=== PATIENT | female | born 1945 | race African-American/Black ===

== ENCOUNTER 2017-07-08 16:10 | Inpatient (IN) | payer MEDICARE, OTHER ==
[2017-07-08] MEDS: SOD CHLORIDE 0.9% 1,000 ML IV (20:57)
[2017-07-08 21:08] LABS: ADD MAN DIFF? NO
[2017-07-08 21:11] LABS: WHITE BLOOD COUNT 12.7 10^3/ul (4.8-10.8)
[2017-07-08 21:11] LABS: BASOPHILS % 0.3 % (0.0-2.0); HEMATOCRIT 42.7 % (37.0-47.0); HEMOGLOBIN 14.5 g/dl (12.0-16.0); LYMPHOCYTES # 2.4 10^3/ul (0.8-2.9); LYMPHOCYTES % 18.7 % (15.0-51.0); MEAN CORPUSCULAR HEMOGLOBIN 27.4 pg (29.0-33.0); MEAN CORPUSCULAR VOLUME 80.6 fl (82.0-101.0); MEAN PLATELET VOLUME 11.8 fl (7.4-10.4); MONOCYTE # 0.6 10^3/ul (0.3-0.9); MONOCYTES % 4.6 % (0.0-11.0); NEUTROPHIL # 9.4 10^3/ul (1.6-7.5); NEUTROPHILS % 74.1 % (39.0-77.0); PLATELET COUNT 208 10^3/UL (140-415); RED CELL DISTRIBUTION WIDTH 14.4 % (11.5-14.5)
[2017-07-08 21:34] LABS: ADD UMIC NO; UR ASCORBIC ACID NEGATIVE (NEGATIVE); UR BILIRUBIN (Dip) NEGATIVE (NEGATIVE); UR BLOOD (Dip) NEGATIVE (NEGATIVE); UR CLARITY CLEAR (CLEAR); UR COLOR YELLOW (YELLOW); UR GLUCOSE (Dip) 3+ mg/dL (NEGATIVE); UR KETONES (Dip) NEGATIVE (NEGATIVE); UR LEUKOCYTE ESTERASE (Dip) NEGATIVE Leu/ul (NEGATIVE); UR NITRITE (Dip) NEGATIVE (NEGATIVE); UR TOTAL PROTEIN (Dip) NEGATIVE (NEGATIVE); UR UROBILINOGEN (Dip) NEGATIVE (NEGATIVE)
[2017-07-08 21:41] LABS: ALANINE AMINOTRANSFERASE 28 IU/L (13-69); ALBUMIN 4.1 g/dl (3.3-4.9); ALKALINE PHOSPHATASE 109 IU/L (42-121); ANION GAP 21 (8-16); ASPARTATE AMINO TRANSFERASE 20 IU/L (15-46); BLOOD UREA NITROGEN 16 mg/dl (7-20); CARBON DIOXIDE 22 mmol/L (21-31); CHLORIDE 95 mmol/L (97-110); CREATININE 0.61 mg/dl (0.44-1.00); GLUCOSE 394 mg/dl (70-220); LIPASE 171 U/L (23-300); POTASSIUM 4.6 mmol/L (3.5-5.1); SODIUM 133 mmol/L (135-144); TOTAL PROTEIN 6.5 g/dl (6.1-8.1)
[2017-07-08 21:43] LABS: LACTIC ACID 9.6 mmol/L (0.5-2.0)
[2017-07-08 21:56] LABS: TROPONIN-I < 0.012 ng/ml (0.00-0.12)
[2017-07-08 22:11] LABS: INR 0.93; PROTIME 12.5 Sec (11.9-14.9)
[2017-07-08 22:12] LABS: PARTIAL THROMBOPLASTIN TIME 21.8 Sec (25.0-35.0)
[2017-07-08] MEDS: SODIUM CHLORIDE 0.9% 1L BAG IV* (23:04)
[2017-07-08] MEDS: CEFEPIME 1GM/50 ML (PMX) 50 ML IVPB (23:35)
[2017-07-08 23:42] LABS: LACTIC ACID 7.3 mmol/L (0.5-2.0)
[2017-07-09] MEDS ORDERED: ONDANSETRON 4 MG INJ IV
[2017-07-09] MEDS ORDERED: ACETAMINOPHEN 325 MG TAB PO
[2017-07-09 00:15] LABS: MODE ROOM AIR; MetHgb Venous 0.1 %; Sample Type Blood venous; Site VENOUS LINE; Venous COHb 2.4 %; Venous Fraction OxyHgb 87.3 %; Venous Oxygen Sat 89.5 mmHG (55.0-75.0); Venous Total Hemglobin 14.2 g/dl
[2017-07-09] MEDS: SOD CHLORIDE 0.9% 1,000 ML IV ×2 (00:26→13:46)
[2017-07-09] MEDS ORDERED: BISACODYL (EC) 5 MG TAB PO (00:30)
[2017-07-09] MEDS ORDERED: NACL 0.9% 3 ML SYG IV (00:30)
[2017-07-09] MEDS ORDERED: DOCUSATE SODIUM 100 MG CAP PO (00:30)
[2017-07-09] MEDS ORDERED: GLUCAGON 1 MG INJ IM (01:00)
[2017-07-09] MEDS ORDERED: GLUCOSE GEL 15 GRAM TUBE PO ×2 (01:00)
[2017-07-09] MEDS ORDERED: DEXTROSE 50% 50 ML SYRINGE IV ×2 (01:00)
[2017-07-09] MEDS ORDERED: GLUCOSE GEL 15 GRAM TUBE BUCCAL (01:00)
[2017-07-09] MEDS: ALBUTEROL/IPRATROPIUM (NEB) 3 ML AMP HHN ×6 (01:44→21:35)
[2017-07-09] MEDS: NICOTINE (7 MG/24 HR) PATCH TRANSDERM (01:44)
[2017-07-09 01:47] LABS: LACTIC ACID 4.9 mmol/L (0.5-2.0)
[2017-07-09] MEDS: ACCU-CHEK XX (02:00)
[2017-07-09 03:37] LABS: D-DIMER 679.08 ng/ml (<460)
[2017-07-09 03:39] LABS: CREATINE KINASE 38 IU/L (23-200)
[2017-07-09 03:51] LABS: CK INDEX 1.9; CK-MB 0.74 ng/ml (0.0-2.4)
[2017-07-09 03:56] LABS: LACTIC ACID 5.2 mmol/L (0.5-2.0)
[2017-07-09 04:16] LABS: TROPONIN-I < 0.012 ng/ml (0.00-0.12)
[2017-07-09] MEDS: SOD CHLORIDE 0.9% 100 ML (06:17)
[2017-07-09] MEDS: IOHEXOL 300MG/ML 150 ML BTL (06:17)
[2017-07-09 07:41] LABS: ADD MAN DIFF? NO
[2017-07-09 07:46] LABS: WHITE BLOOD COUNT 12.8 10^3/ul (4.8-10.8)
[2017-07-09 07:46] LABS: BASOPHILS % 0.2 % (0.0-2.0); EOSINOPHILS # 0.1 10^3/ul (0.0-0.5); EOSINOPHILS % 0.8 % (0.0-7.0); HEMATOCRIT 35.2 % (37.0-47.0); HEMOGLOBIN 11.5 g/dl (12.0-16.0); LYMPHOCYTES # 4.5 10^3/ul (0.8-2.9); LYMPHOCYTES % 34.7 % (15.0-51.0); MEAN CORPUSCULAR HEMOGLOBIN 26.9 pg (29.0-33.0); MEAN CORPUSCULAR HGB CONC 32.7 g/dl (32.0-37.0); MEAN CORPUSCULAR VOLUME 82.2 fl (82.0-101.0); MEAN PLATELET VOLUME 11.1 fl (7.4-10.4); MONOCYTE # 0.9 10^3/ul (0.3-0.9); MONOCYTES % 6.9 % (0.0-11.0); NEUTROPHILS % 54.9 % (39.0-77.0); PLATELET COUNT 151 10^3/UL (140-415); RED BLOOD COUNT 4.28 10^6/ul (4.20-5.40); RED CELL DISTRIBUTION WIDTH 14.8 % (11.5-14.5)
[2017-07-09 07:54] LABS: HEMOGLOBIN A1C 9.2 % (0-5.9)
[2017-07-09 08:07] LABS: CREATINE KINASE 43 IU/L (23-200)
[2017-07-09 08:11] LABS: ALANINE AMINOTRANSFERASE 32 IU/L (13-69); ALBUMIN 2.9 g/dl (3.3-4.9); ALBUMIN/GLOBULIN RATIO 1.38; ALKALINE PHOSPHATASE 117 IU/L (42-121); ANION GAP 12 (8-16); ASPARTATE AMINO TRANSFERASE 14 IU/L (15-46); BLOOD UREA NITROGEN 14 mg/dl (7-20); CALCIUM 8.8 mg/dl (8.4-10.2); CARBON DIOXIDE 27 mmol/L (21-31); CHLORIDE 102 mmol/L (97-110); CREATININE 0.58 mg/dl (0.44-1.00); GLUCOSE 301 mg/dl (70-220); POTASSIUM 3.7 mmol/L (3.5-5.1); SODIUM 137 mmol/L (135-144)
[2017-07-09 08:12] LABS: CHOL/HDL RATIO 3.2 RATIO; HDL CHOLESTEROL 42 mg/dl (33-92); LDL CHOLESTEROL,CALCULATED 71 mg/dl; TRIGLYCERIDES 127 mg/dl (0-149)
[2017-07-09 08:12] LABS: CHOLESTEROL 138 mg/dl (100-200)
[2017-07-09 08:13] LABS: LACTIC ACID 4.5 mmol/L (0.5-2.0)
[2017-07-09 08:18] LABS: CK INDEX 1.8; CK-MB 0.78 ng/ml (0.0-2.4)
[2017-07-09 08:20] LABS: TROPONIN-I < 0.012 ng/ml (0.00-0.12)
[2017-07-09] MEDS: AMLODIPINE 2.5 MG TAB PO (08:51)
[2017-07-09] MEDS: LEVOTHYROXINE 112 MCG TAB PO (08:51)
[2017-07-09] MEDS: ASPIRIN (EC) 81 MG TAB PO (08:51)
[2017-07-09] MEDS: ENOXAPARIN 60 MG/0.6 ML SYG SC (08:59)
[2017-07-09] MEDS: INSULIN ASPART [NOVOLOG] 3 ML PEN SC ×5 (09:00→21:55)
[2017-07-09 09:06] LABS: THYROID STIMULATING HORMONE < 0.015 MIU/L (0.465-4.680)
[2017-07-09 12:41] LABS: B-TYPE NATRIURETIC PEPTIDE 42 PG/ML (0-125)
[2017-07-09] MEDS: ACETAMINOPHEN 325 MG TAB PO (14:36)
[2017-07-09 14:47] LABS: LACTIC ACID 2.9 mmol/L (0.5-2.0)
[2017-07-09 16:16] LABS: LACTIC ACID 2.8 mmol/L (0.5-2.0)
[2017-07-09 16:42] LABS: FREE T4 (FREE THYROXINE) 1.69 ng/dl (0.78-2.44)
[2017-07-09] MEDS: BENAZEPRIL 10 MG TAB PO (17:28)
[2017-07-09] MEDS: INSULIN GLARGINE [LANtus] 3 ML PEN SC (21:53)
[2017-07-10] MEDS: HYDROCODONE/APAP (10/325) TAB PO ×3 (01:37→18:23)
[2017-07-10] MEDS: ACCU-CHEK XX (02:00)
[2017-07-10] MEDS: ALBUTEROL/IPRATROPIUM (NEB) 3 ML AMP HHN ×6 (02:08→21:00)
[2017-07-10] MEDS: SOD CHLORIDE 0.9% 1,000 ML IV ×2 (03:06→18:17)
[2017-07-10] MEDS: LEVOTHYROXINE 112 MCG TAB PO (06:00)
[2017-07-10] MEDS: INSULIN ASPART [NOVOLOG] 3 ML PEN SC ×7 (08:00→20:42)
[2017-07-10 08:58] LABS: ADD MAN DIFF? NO
[2017-07-10 09:02] LABS: ABNORMAL IP MESSAGE 1; BASOPHIL # 0.1 10^3/ul (0.0-0.1); BASOPHILS % 0.7 % (0.0-2.0); EOSINOPHILS # 0.1 10^3/ul (0.0-0.5); EOSINOPHILS % 1.2 % (0.0-7.0); HEMATOCRIT 35.8 % (37.0-47.0); HEMOGLOBIN 12.1 g/dl (12.0-16.0); LYMPHOCYTES # 5.3 10^3/ul (0.8-2.9); LYMPHOCYTES % 52.8 % (15.0-51.0); MEAN CORPUSCULAR HEMOGLOBIN 27.6 pg (29.0-33.0); MEAN CORPUSCULAR HGB CONC 33.8 g/dl (32.0-37.0); MEAN CORPUSCULAR VOLUME 81.7 fl (82.0-101.0); MEAN PLATELET VOLUME 11.4 fl (7.4-10.4); MONOCYTE # 0.6 10^3/ul (0.3-0.9); MONOCYTES % 6.1 % (0.0-11.0); NEUTROPHIL # 3.6 10^3/ul (1.6-7.5); NEUTROPHILS % 35.7 % (39.0-77.0); PLATELET COUNT 154 10^3/UL (140-415); RED BLOOD COUNT 4.38 10^6/ul (4.20-5.40); RED CELL DISTRIBUTION WIDTH 14.6 % (11.5-14.5)
[2017-07-10 09:02] LABS: WHITE BLOOD COUNT 10.1 10^3/ul (4.8-10.8)
[2017-07-10 09:05] LABS: POSITIVE DIFF @See below
[2017-07-10] MEDS: BENAZEPRIL 10 MG TAB PO (09:05)
[2017-07-10] MEDS: ASPIRIN (EC) 81 MG TAB PO (09:05)
[2017-07-10] MEDS: NICOTINE (7 MG/24 HR) PATCH TRANSDERM (09:05)
[2017-07-10] MEDS: AMLODIPINE 2.5 MG TAB PO (09:05)
[2017-07-10] MEDS: ENOXAPARIN 40 MG/0.4 ML SYG SC (09:10)
[2017-07-10 09:19] LABS: PHOSPHORUS 3.4 mg/dl (2.5-4.9)
[2017-07-10 09:19] LABS: ANION GAP 11 (8-16); BLOOD UREA NITROGEN 14 mg/dl (7-20); CALCIUM 9.5 mg/dl (8.4-10.2); CARBON DIOXIDE 27 mmol/L (21-31); CHLORIDE 109 mmol/L (97-110); GLUCOSE 146 mg/dl (70-220); SODIUM 143 mmol/L (135-144)
[2017-07-10 09:30] LABS: LACTIC ACID 2.5 mmol/L (0.5-2.0)
[2017-07-10 13:48] LABS: FREE T4 (FREE THYROXINE) 1.42 ng/dl (0.78-2.44)
[2017-07-10 15:03] LABS: THYROID STIMULATING HORMONE < 0.015 MIU/L (0.465-4.680)
[2017-07-10 15:40] LABS: LACTIC ACID 2.9 mmol/L (0.5-2.0)
[2017-07-10] MEDS: INSULIN GLARGINE [LANtus] 3 ML PEN SC (20:42)
[2017-07-11] MEDS: ALBUTEROL/IPRATROPIUM (NEB) 3 ML AMP HHN ×4 (01:00→14:39)
[2017-07-11] MEDS: ACCU-CHEK XX (02:00)
[2017-07-11] MEDS: ZOLPIDEM 5 MG TAB PO (02:20)
[2017-07-11] MEDS: LEVOTHYROXINE 100 MCG TAB PO (05:32)
[2017-07-11 05:37] LABS: ADD MAN DIFF? NO
[2017-07-11 05:41] LABS: WHITE BLOOD COUNT 9.1 10^3/ul (4.8-10.8)
[2017-07-11 05:41] LABS: BASOPHILS % 0.4 % (0.0-2.0); EOSINOPHILS # 0.2 10^3/ul (0.0-0.5); EOSINOPHILS % 1.8 % (0.0-7.0); HEMATOCRIT 34.2 % (37.0-47.0); HEMOGLOBIN 11.2 g/dl (12.0-16.0); LYMPHOCYTES # 4.2 10^3/ul (0.8-2.9); LYMPHOCYTES % 45.7 % (15.0-51.0); MEAN CORPUSCULAR HEMOGLOBIN 26.8 pg (29.0-33.0); MEAN CORPUSCULAR HGB CONC 32.7 g/dl (32.0-37.0); MEAN CORPUSCULAR VOLUME 81.8 fl (82.0-101.0); MEAN PLATELET VOLUME 11.3 fl (7.4-10.4); MONOCYTE # 0.6 10^3/ul (0.3-0.9); NEUTROPHIL # 3.7 10^3/ul (1.6-7.5); NEUTROPHILS % 40.6 % (39.0-77.0); NUCLEATED RED BLOOD CELLS% 0.3 /100WBC (0.0-0.0); PLATELET COUNT 141 10^3/UL (140-415); RED BLOOD COUNT 4.18 10^6/ul (4.20-5.40); RED CELL DISTRIBUTION WIDTH 14.8 % (11.5-14.5)
[2017-07-11 05:59] LABS: PHOSPHORUS 3.4 mg/dl (2.5-4.9)
[2017-07-11 05:59] LABS: MAGNESIUM 1.3 mg/dl (1.7-2.5)
[2017-07-11] MEDS: HYDROCODONE/APAP (10/325) TAB PO (06:12)
[2017-07-11] MEDS: SOD CHLORIDE 0.9% 1,000 ML IV (06:13)
[2017-07-11 06:18] LABS: ANION GAP 8 (8-16); BLOOD UREA NITROGEN 19 mg/dl (7-20); CALCIUM 9.3 mg/dl (8.4-10.2); CARBON DIOXIDE 26 mmol/L (21-31); CHLORIDE 111 mmol/L (97-110); CREATININE 0.56 mg/dl (0.44-1.00); GLUCOSE 144 mg/dl (70-220); POTASSIUM 4.3 mmol/L (3.5-5.1); SODIUM 141 mmol/L (135-144)
[2017-07-11 06:19] LABS: LACTIC ACID 1.4 mmol/L (0.5-2.0)
[2017-07-11] MEDS: INSULIN ASPART [NOVOLOG] 3 ML PEN SC ×3 (08:15→12:12)
[2017-07-11] MEDS: BENAZEPRIL 10 MG TAB PO (09:34)
[2017-07-11] MEDS: AMLODIPINE 2.5 MG TAB PO (09:34)
[2017-07-11] MEDS: ASPIRIN (EC) 81 MG TAB PO (09:34)
[2017-07-11] MEDS: NICOTINE (7 MG/24 HR) PATCH TRANSDERM ×2 (09:35→12:29)
[2017-07-11] MEDS: ENOXAPARIN 40 MG/0.4 ML SYG SC (09:36)
[2017-07-11] MEDS: LINAGLIPTIN 5 MG TABLET PO (11:32)
[2017-07-11] MEDS: SALMETEROL/FLUTICASONE 250/50 INHA INH (12:28)
[2017-07-11] MEDS: REPAGLINIDE 2 MG TAB PO (12:29)
[2017-07-11] MEDS: MAGNESIUM SULFATE 3 GM in DEXTROSE 5% 100 ML IVPB (14:24)
[2017-07-11] MEDS ORDERED: metFORMIN 850 MG TAB PO (17:50)
[2017-07-11] MEDS ORDERED: metFORMIN 500 MG TAB PO (17:50)
[2017-07-11] MEDS ORDERED: MONTELUKAST 10 MG TAB PO (21:00)
[2017-07-12] MEDS ORDERED: BENAZEPRIL 40 MG TAB PO (09:00)
== END 2017-07-11 17:40 | disposition home or self-care (01) | DRG 638 ==
LOC: MS4 23:48 → MS2 07-09 03:11 → E/R 16:10 → MS2 07-10 18:10
PROVIDERS: Family Medicine
DX: E11.65 Type 2 diabetes mellitus with hyperglycemia (principal); E87.2 Acidosis; J44.9 Chronic obstructive pulmonary disease, unspecified; I11.9 Hypertensive heart disease without heart failure; E03.9 Hypothyroidism, unspecified; F17.210 Nicotine dependence, cigarettes, uncomplicated; R60.0 Localized edema; E66.9 Obesity, unspecified; Z68.35 Body mass index [BMI] 35.0-35.9, adult
CPT/HCPCS: 36415; 71045; 71275; 80048; 80053; 80061; 81003; 82550; 82553; 82803; 82962; 83036; 83605; 83690; 83735; 83880; 84100; 84439; 84443; 84484; 85025; 85378; 85610; 85730; 87040; 87086; 87400; 93005; 93306; 93970; 94640; 94664; 96374; 99291-25

== ENCOUNTER 2018-04-11 21:19 | Observation (INO) | payer MEDICARE, OTHER ==
[2018-04-12 00:09] LABS: ADD MAN DIFF? NO
[2018-04-12 00:10] LABS: BASOPHILS % 0.3 % (0.0-2.0); EOSINOPHILS # 0.4 10^3/ul (0.0-0.5); EOSINOPHILS % 3.8 % (0.0-7.0); HEMATOCRIT 38.9 % (37.0-47.0); HEMOGLOBIN 12.3 g/dl (12.0-16.0); LYMPHOCYTES % 30.7 % (15.0-51.0); MEAN CORPUSCULAR HEMOGLOBIN 25.5 pg (29.0-33.0); MEAN CORPUSCULAR HGB CONC 31.6 g/dl (32.0-37.0); MEAN CORPUSCULAR VOLUME 80.7 fl (82.0-101.0); MEAN PLATELET VOLUME 10.8 fl (7.4-10.4); MONOCYTE # 0.9 10^3/ul (0.3-0.9); NEUTROPHIL # 5.4 10^3/ul (1.6-7.5); NEUTROPHILS % 54.7 % (39.0-77.0); PLATELET COUNT 272 10^3/UL (140-415); RED BLOOD COUNT 4.82 10^6/ul (4.20-5.40); RED CELL DISTRIBUTION WIDTH 14.2 % (11.5-14.5)
[2018-04-12 00:10] LABS: WHITE BLOOD COUNT 9.9 10^3/ul (4.8-10.8)
[2018-04-12] MEDS: morphine 4 MG/ML VIAL IV (00:10)
[2018-04-12] MEDS: ONDANSETRON 4 MG INJ IV (00:10)
[2018-04-12] MEDS: METHYLPREDNISOLONE 125 MG INJ IV (00:11)
[2018-04-12] MEDS: IPRATROPIUM (NEB) 0.5 MG/2.5 ML AMP INH (00:25)
[2018-04-12] MEDS: ALBUTEROL 0.5% (NEB) 2.5 MG/0.5 ML AMP INH (00:25)
[2018-04-12 00:34] LABS: ANION GAP 6 (5-13); BLOOD UREA NITROGEN 13 mg/dl (7-20); CALCIUM 9.4 mg/dl (8.4-10.2); CARBON DIOXIDE 28 mmol/L (21-31); CHLORIDE 107 mmol/L (97-110); CREATININE 0.56 mg/dl (0.44-1.00); Estimated GFR > 60 mL/min (>60); GLUCOSE 152 mg/dl (70-220); POTASSIUM 3.9 mmol/L (3.5-5.1); SODIUM 141 mmol/L (135-144)
[2018-04-12] MEDS: HYDROmorphONE 1 MG/ML SYG IV (01:11)
[2018-04-12] MEDS: ALBUTEROL 0.083% (NEB) 2.5 MG/3 ML AMP HHN (02:38)
[2018-04-12] MEDS ORDERED: BISACODYL (EC) 5 MG TAB PO (03:00)
[2018-04-12] MEDS ORDERED: ONDANSETRON 4 MG INJ IV (03:00)
[2018-04-12] MEDS ORDERED: ACETAMINOPHEN 325 MG TAB PO (03:00)
[2018-04-12] MEDS ORDERED: DOCUSATE SODIUM 100 MG CAP PO (03:00)
[2018-04-12] MEDS ORDERED: NACL 0.9% 3 ML SYG IV (03:00)
[2018-04-12] MEDS: HYDROmorphONE 0.5 MG/0.5 ML SYG IV (03:40)
[2018-04-12] MEDS: morphine 2 MG INJ IV (04:37)
[2018-04-12] MEDS ORDERED: GLUCOSE GEL 15 GRAM TUBE PO ×2 (05:00)
[2018-04-12] MEDS ORDERED: GLUCAGON 1 MG INJ IM (05:00)
[2018-04-12] MEDS ORDERED: DEXTROSE 50% 50 ML SYRINGE IV ×2 (05:00)
[2018-04-12] MEDS ORDERED: GLUCOSE GEL 15 GRAM TUBE BUCCAL (05:00)
[2018-04-12] MEDS: ALBUTEROL/IPRATROPIUM (NEB) 3 ML AMP HHN ×5 (05:14→21:05)
[2018-04-12] MEDS ORDERED: RANITIDINE 150 MG TAB PO (07:30)
[2018-04-12] MEDS: INSULIN ASPART [NOVOLOG] 3 ML PEN SC ×6 (07:37→20:30)
[2018-04-12] MEDS: LEVOTHYROXINE 100 MCG TAB PO (07:38)
[2018-04-12] MEDS: BUDESONIDE (NEB) 0.5MG/2ML AMP INH ×2 (08:20→21:05)
[2018-04-12] MEDS ORDERED: NON-FORMULARY/PATIENT OWN MED (Salmeterol Xinaf/Fluticasone* (Advair*) 1 INH) INH (09:00)
[2018-04-12] MEDS: HYDROCODONE/APAP (10/325) TAB NGT ×4 (09:04→22:05)
[2018-04-12 09:06] LABS: ADD MAN DIFF? NO
[2018-04-12 09:14] LABS: WHITE BLOOD COUNT 8.8 10^3/ul (4.8-10.8)
[2018-04-12 09:14] LABS: BASOPHILS % 0.2 % (0.0-2.0); EOSINOPHILS # 0.2 10^3/ul (0.0-0.5); EOSINOPHILS % 2.5 % (0.0-7.0); HEMATOCRIT 34.4 % (37.0-47.0); HEMOGLOBIN 10.8 g/dl (12.0-16.0); LYMPHOCYTES # 3.2 10^3/ul (0.8-2.9); LYMPHOCYTES % 36.2 % (15.0-51.0); MEAN CORPUSCULAR HEMOGLOBIN 25.4 pg (29.0-33.0); MEAN CORPUSCULAR HGB CONC 31.4 g/dl (32.0-37.0); MEAN CORPUSCULAR VOLUME 80.8 fl (82.0-101.0); MEAN PLATELET VOLUME 11.4 fl (7.4-10.4); MONOCYTE # 0.8 10^3/ul (0.3-0.9); MONOCYTES % 9.2 % (0.0-11.0); NEUTROPHIL # 4.5 10^3/ul (1.6-7.5); NEUTROPHILS % 50.9 % (39.0-77.0); PLATELET COUNT 225 10^3/UL (140-415); RED BLOOD COUNT 4.26 10^6/ul (4.20-5.40); RED CELL DISTRIBUTION WIDTH 14.5 % (11.5-14.5)
[2018-04-12 09:29] LABS: HEMOGLOBIN A1C 7.4 % (0-5.9)
[2018-04-12] MEDS: predniSONE 20 MG TAB PO (09:47)
[2018-04-12] MEDS: BENAZEPRIL 40 MG TAB PO (09:47)
[2018-04-12] MEDS: ASPIRIN (EC) 81 MG TAB PO (09:47)
[2018-04-12] MEDS: NICOTINE (14 MG/24 HR) PATCH TRANSDERM (09:47)
[2018-04-12 09:49] LABS: ALANINE AMINOTRANSFERASE 20 IU/L (13-69); ALBUMIN 3.1 g/dl (3.3-4.9); ALKALINE PHOSPHATASE 89 IU/L (42-121); ANION GAP 10 (5-13); ASPARTATE AMINO TRANSFERASE 14 IU/L (15-46); BLOOD UREA NITROGEN 14 mg/dl (7-20); CALCIUM 9.2 mg/dl (8.4-10.2); CARBON DIOXIDE 26 mmol/L (21-31); CHLORIDE 105 mmol/L (97-110); CREATININE 0.55 mg/dl (0.44-1.00); Estimated GFR > 60 mL/min (>60); GLUCOSE 291 mg/dl (70-220); MAGNESIUM 1.2 mg/dl (1.7-2.5); POTASSIUM 3.7 mmol/L (3.5-5.1); SODIUM 141 mmol/L (135-144); TOTAL PROTEIN 5.3 g/dl (6.1-8.1)
[2018-04-12] MEDS: LEVOFLOXACIN 750 MG TABLET PO (10:03)
[2018-04-12] MEDS: ENOXAPARIN 40 MG/0.4 ML SYG SC (10:07)
[2018-04-12 10:13] LABS: THYROID STIMULATING HORMONE < 0.015 MIU/L (0.465-4.680)
[2018-04-12] MEDS: ARFORMOTEROL TARTRATE 15MCG/2 ML AMP INH ×2 (10:37→21:14)
[2018-04-12] MEDS: MAGNESIUM SULFATE 2 GM/50 ML 50 ML IVPB (11:43)
[2018-04-12] MEDS: MONTELUKAST 10 MG TAB PO (20:20)
[2018-04-12] MEDS: INSULIN GLARGINE [LANTus] (100 UNITS/ML) SYG SC (20:30)
[2018-04-13] MEDS: HYDROCODONE/APAP (10/325) TAB NGT ×3 (01:59→20:15)
[2018-04-13] MEDS ORDERED: ACCU-CHEK XX (02:00)
[2018-04-13] MEDS: ALBUTEROL/IPRATROPIUM (NEB) 3 ML AMP HHN ×6 (02:41→20:50)
[2018-04-13] MEDS: LEVOFLOXACIN 750 MG TABLET PO (07:19)
[2018-04-13] MEDS: LEVOTHYROXINE 100 MCG TAB PO (07:19)
[2018-04-13] MEDS: INSULIN ASPART [NOVOLOG] 3 ML PEN SC ×7 (08:19→20:08)
[2018-04-13] MEDS: NICOTINE (14 MG/24 HR) PATCH TRANSDERM (08:27)
[2018-04-13] MEDS: BENAZEPRIL 20 MG TAB PO (08:29)
[2018-04-13] MEDS: predniSONE 20 MG TAB PO (08:29)
[2018-04-13] MEDS: BENAZEPRIL 5 MG TAB PO (08:30)
[2018-04-13] MEDS: ASPIRIN (EC) 81 MG TAB PO (08:30)
[2018-04-13] MEDS: AMLODIPINE 5 MG TAB PO (08:30)
[2018-04-13] MEDS: ENOXAPARIN 40 MG/0.4 ML SYG SC (08:35)
[2018-04-13] MEDS: BUDESONIDE (NEB) 0.5MG/2ML AMP INH ×2 (08:38→20:43)
[2018-04-13] MEDS: ARFORMOTEROL TARTRATE 15MCG/2 ML AMP INH ×2 (08:56→20:35)
[2018-04-13] MEDS: MONTELUKAST 10 MG TAB PO (20:03)
[2018-04-13] MEDS: INSULIN GLARGINE [LANTus] (100 UNITS/ML) SYG SC (20:08)
[2018-04-14] MEDS: ALBUTEROL/IPRATROPIUM (NEB) 3 ML AMP HHN ×3 (02:10→08:16)
[2018-04-14] MEDS: HYDROCODONE/APAP (10/325) TAB NGT ×2 (03:05→09:22)
[2018-04-14] MEDS: LEVOFLOXACIN 750 MG TABLET PO (05:47)
[2018-04-14] MEDS: LEVOTHYROXINE 100 MCG TAB PO (05:47)
[2018-04-14] MEDS: INSULIN ASPART [NOVOLOG] 3 ML PEN SC ×2 (07:49→07:57)
[2018-04-14] MEDS: ARFORMOTEROL TARTRATE 15MCG/2 ML AMP INH (08:00)
[2018-04-14] MEDS: NICOTINE (14 MG/24 HR) PATCH TRANSDERM (08:06)
[2018-04-14] MEDS: ASPIRIN (EC) 81 MG TAB PO (08:06)
[2018-04-14] MEDS: BENAZEPRIL 5 MG TAB PO (08:07)
[2018-04-14] MEDS: BENAZEPRIL 20 MG TAB PO (08:07)
[2018-04-14] MEDS: AMLODIPINE 5 MG TAB PO (08:08)
[2018-04-14] MEDS: predniSONE 20 MG TAB PO (08:08)
[2018-04-14] MEDS: ENOXAPARIN 40 MG/0.4 ML SYG SC (08:14)
[2018-04-14] MEDS: BUDESONIDE (NEB) 0.5MG/2ML AMP INH (08:16)
== END 2018-04-14 12:10 | disposition home or self-care (01) ==
LOC: E/R 21:19 → TEL 04-12 02:36
DX: J44.1 Chronic obstructive pulmonary disease with (acute) exacerbation (principal); I10 Essential (primary) hypertension; E03.9 Hypothyroidism, unspecified; R60.0 Localized edema
CPT/HCPCS: 71045; 80048; 80053; 82962; 83036; 83735; 84443; 85025; 93306; 93970; 94640; 94644; 94645; 94664; 96374; 96375; 99285-25; G0378

== ENCOUNTER 2018-06-06 16:24 | Inpatient (IN) | payer MEDICARE, OTHER ==
[2018-06-06] MEDS: ASPIRIN 325 MG TAB PO (20:58)
[2018-06-06] MEDS: NITROGLYCERIN 2% 1 GM OINT PKT TD (20:58)
[2018-06-06 21:44] LABS: ADD MAN DIFF? NO
[2018-06-06 21:46] LABS: BASOPHILS % 0.5 % (0.0-2.0); EOSINOPHILS # 0.3 10^3/ul (0.0-0.5); EOSINOPHILS % 4.9 % (0.0-7.0); HEMATOCRIT 36.9 % (37.0-47.0); HEMOGLOBIN 11.6 g/dl (12.0-16.0); LYMPHOCYTES # 2.7 10^3/ul (0.8-2.9); LYMPHOCYTES % 41.9 % (15.0-51.0); MEAN CORPUSCULAR HEMOGLOBIN 24.2 pg (29.0-33.0); MEAN CORPUSCULAR HGB CONC 31.4 g/dl (32.0-37.0); MEAN CORPUSCULAR VOLUME 76.9 fl (82.0-101.0); MEAN PLATELET VOLUME 11.2 fl (7.4-10.4); MONOCYTE # 0.5 10^3/ul (0.3-0.9); MONOCYTES % 7.7 % (0.0-11.0); NEUTROPHIL # 2.9 10^3/ul (1.6-7.5); NEUTROPHILS % 44.7 % (39.0-77.0); PLATELET COUNT 260 10^3/UL (140-415); RED CELL DISTRIBUTION WIDTH 15.5 % (11.5-14.5)
[2018-06-06 21:46] LABS: WHITE BLOOD COUNT 6.5 10^3/ul (4.8-10.8)
[2018-06-06] MEDS: ONDANSETRON 4 MG INJ IV (21:49)
[2018-06-06] MEDS: HYDROmorphONE 1 MG/ML SYG IV (21:50)
[2018-06-06 22:04] LABS: ALANINE AMINOTRANSFERASE 15 IU/L (13-69); ALBUMIN 3.3 g/dl (3.3-4.9); ALBUMIN/GLOBULIN RATIO 1.06; ALKALINE PHOSPHATASE 96 IU/L (42-121); ASPARTATE AMINO TRANSFERASE 29 IU/L (15-46); BLOOD UREA NITROGEN 12 mg/dl (7-20); CALCIUM 9.5 mg/dl (8.4-10.2); CARBON DIOXIDE 30 mmol/L (21-31); CHLORIDE 103 mmol/L (97-110); CREATININE 0.55 mg/dl (0.44-1.00); Estimated GFR > 60 mL/min (>60); GLUCOSE 299 mg/dl (70-220); POTASSIUM 4.9 mmol/L (3.5-5.1); TOTAL PROTEIN 6.4 g/dl (6.1-8.1)
[2018-06-06 22:06] LABS: INR 0.89; PROTIME 12.2 Sec (11.9-14.9)
[2018-06-06 22:15] LABS: TROPONIN-I < 0.012 ng/ml (0.000-0.120)
[2018-06-06] MEDS ORDERED: ONDANSETRON 4 MG INJ IV (22:30)
[2018-06-06] MEDS ORDERED: ACETAMINOPHEN 325 MG TAB PO ×2 (22:30→23:00)
[2018-06-06 22:32] LABS: ANION GAP 7 (5-13); SODIUM 140 mmol/L (135-144)
[2018-06-06] MEDS ORDERED: DOCUSATE SODIUM 100 MG CAP PO (23:00)
[2018-06-06] MEDS ORDERED: NITROGLYCERIN (SL) 0.4 MG TAB SL (23:00)
[2018-06-06] MEDS ORDERED: BISACODYL (EC) 5 MG TAB PO (23:00)
[2018-06-06] MEDS ORDERED: NACL 0.9% 3 ML SYG IV (23:00)
[2018-06-06] MEDS: HEPARIN 5,000 UNIT/1 ML VIAL SC (23:00)
[2018-06-07] MEDS: KETOROLAC 15 MG INJ IV ×4 (00:14→22:36)
[2018-06-07] MEDS: RANITIDINE 150 MG TAB PO ×2 (00:49→22:36)
[2018-06-07] MEDS ORDERED: GLUCOSE GEL 15 GRAM TUBE BUCCAL (02:30)
[2018-06-07] MEDS ORDERED: GLUCAGON 1 MG INJ IM (02:30)
[2018-06-07] MEDS ORDERED: GLUCOSE GEL 15 GRAM TUBE PO ×2 (02:30)
[2018-06-07] MEDS ORDERED: DEXTROSE 50% 50 ML SYRINGE IV ×2 (02:30)
[2018-06-07] MEDS: ACCU-CHEK XX (02:31)
[2018-06-07] MEDS: morphine SULFATE/PF (2 MG/2 ML) SYG IV ×2 (02:33→10:16)
[2018-06-07 03:50] LABS: ADD MAN DIFF? NO
[2018-06-07 03:58] LABS: BASOPHILS % 0.5 % (0.0-2.0); EOSINOPHILS # 0.3 10^3/ul (0.0-0.5); EOSINOPHILS % 4.7 % (0.0-7.0); HEMATOCRIT 35.1 % (37.0-47.0); HEMOGLOBIN 11.1 g/dl (12.0-16.0); LYMPHOCYTES # 3.1 10^3/ul (0.8-2.9); LYMPHOCYTES % 52.5 % (15.0-51.0); MEAN CORPUSCULAR HEMOGLOBIN 24.4 pg (29.0-33.0); MEAN CORPUSCULAR HGB CONC 31.6 g/dl (32.0-37.0); MEAN CORPUSCULAR VOLUME 77.1 fl (82.0-101.0); MEAN PLATELET VOLUME 10.9 fl (7.4-10.4); MONOCYTE # 0.6 10^3/ul (0.3-0.9); MONOCYTES % 10.2 % (0.0-11.0); NEUTROPHIL # 1.9 10^3/ul (1.6-7.5); NEUTROPHILS % 31.9 % (39.0-77.0); PLATELET COUNT 232 10^3/UL (140-415); RED BLOOD COUNT 4.55 10^6/ul (4.20-5.40); RED CELL DISTRIBUTION WIDTH 15.3 % (11.5-14.5)
[2018-06-07 04:09] LABS: IRON 25 ug/dl (35-150)
[2018-06-07 04:12] LABS: CREATINE KINASE 51 IU/L (23-200)
[2018-06-07 04:18] LABS: % IRON SATURATION 8 % SAT (22-52); TOTAL IRON BINDING CAPACITY 320 ug/dl (241-421)
[2018-06-07 04:23] LABS: CK INDEX 0.7; CK-MB 0.34 ng/ml (0.0-2.4); TROPONIN-I < 0.012 ng/ml (0.000-0.120)
[2018-06-07 04:29] LABS: ALANINE AMINOTRANSFERASE 18 IU/L (13-69); ALBUMIN 3.1 g/dl (3.3-4.9); ALBUMIN/GLOBULIN RATIO 1.14; ALKALINE PHOSPHATASE 110 IU/L (42-121); ANION GAP 8 (5-13); ASPARTATE AMINO TRANSFERASE 21 IU/L (15-46); BLOOD UREA NITROGEN 14 mg/dl (7-20); CALCIUM 9.6 mg/dl (8.4-10.2); CARBON DIOXIDE 32 mmol/L (21-31); CHLORIDE 103 mmol/L (97-110); CHOL/HDL RATIO 3.8 RATIO; CHOLESTEROL 141 mg/dl (100-200); Estimated GFR > 60 mL/min (>60); GLUCOSE 267 mg/dl (70-220); HDL CHOLESTEROL 37 mg/dl (33-92); LDL CHOLESTEROL,CALCULATED 83 mg/dl; MAGNESIUM 1.5 mg/dl (1.7-2.5); POTASSIUM 4.6 mmol/L (3.5-5.1); SODIUM 143 mmol/L (135-144); TOTAL PROTEIN 5.8 g/dl (6.1-8.1); TRIGLYCERIDES 103 mg/dl (0-149)
[2018-06-07 04:34] LABS: HEMOGLOBIN A1C 8.2 % (0-5.9)
[2018-06-07 05:04] LABS: FERRITIN 18.4 ng/ml (11.1-264.0)
[2018-06-07 05:08] LABS: THYROID STIMULATING HORMONE < 0.015 MIU/L (0.465-4.680)
[2018-06-07] MEDS: LEVOTHYROXINE 88 MCG TAB PO (06:19)
[2018-06-07] MEDS: HEPARIN 5,000 UNIT/1 ML VIAL SC ×3 (06:29→22:45)
[2018-06-07] MEDS: FLUTICASONE/VILANTEROL 100-25 INH (08:19)
[2018-06-07] MEDS: LIDOCAINE 5% PATCH TD (08:19)
[2018-06-07] MEDS: BENAZEPRIL 20 MG TAB PO (08:19)
[2018-06-07] MEDS: AMLODIPINE 5 MG TAB PO (08:20)
[2018-06-07] MEDS: ASPIRIN (EC) 81 MG TAB PO (08:20)
[2018-06-07] MEDS: INSULIN ASPART [NOVOLOG] 3 ML PEN SC ×5 (08:25→20:31)
[2018-06-07] MEDS: CYCLOBENZAPRINE 10 MG TAB PO (10:16)
[2018-06-07 11:48] LABS: CREATINE KINASE 53 IU/L (23-200)
[2018-06-07 12:00] LABS: CK INDEX 0.8; CK-MB 0.43 ng/ml (0.0-2.4); TROPONIN-I < 0.012 ng/ml (0.000-0.120)
[2018-06-07] MEDS ORDERED: morphine SULFATE/PF (2 MG/2 ML) SYG IV (12:30)
[2018-06-07] MEDS: CARISOPRODOL 350 MG TAB PO ×2 (15:40→20:22)
[2018-06-07] MEDS: HYDROmorphONE 2 MG TAB PO (17:36)
[2018-06-07] MEDS: INSULIN DETEMIR [LEVEMIR] (100 UNITS/ML) SYG SC (20:30)
[2018-06-07] MEDS ORDERED: CYCLOBENZAPRINE 10 MG TAB PO (21:00)
[2018-06-08] MEDS: HYDROmorphONE 2 MG TAB PO ×5 (01:22→20:39)
[2018-06-08] MEDS: ACCU-CHEK XX (02:11)
[2018-06-08] MEDS ORDERED: hydrALAzine 20 MG INJ (06:23)
[2018-06-08] MEDS: LEVOTHYROXINE 88 MCG TAB PO (06:26)
[2018-06-08] MEDS: HEPARIN 5,000 UNIT/1 ML VIAL SC ×3 (06:32→23:31)
[2018-06-08] MEDS: hydrALAzine 20 MG INJ IV (06:57)
[2018-06-08] MEDS: INSULIN ASPART [NOVOLOG] 3 ML PEN SC ×5 (08:00→20:46)
[2018-06-08] MEDS: AMLODIPINE 5 MG TAB PO (08:07)
[2018-06-08] MEDS: CARISOPRODOL 350 MG TAB PO ×3 (08:07→20:39)
[2018-06-08] MEDS: ASPIRIN (EC) 81 MG TAB PO (08:07)
[2018-06-08] MEDS: BENAZEPRIL 20 MG TAB PO (08:08)
[2018-06-08] MEDS: FLUTICASONE/VILANTEROL 100-25 INH (08:08)
[2018-06-08] MEDS: LIDOCAINE 5% PATCH TD (09:00)
[2018-06-08] MEDS: MAGNESIUM SULFATE 2 GM/50 ML 50 ML IVPB (17:26)
[2018-06-08] MEDS: INSULIN DETEMIR [LEVEMIR] (100 UNITS/ML) SYG SC (20:51)
[2018-06-08] MEDS: RANITIDINE 150 MG TAB PO (23:27)
[2018-06-09] MEDS: ACCU-CHEK XX (02:00)
[2018-06-09] MEDS: HYDROmorphONE 2 MG TAB PO ×2 (02:29→08:11)
[2018-06-09] MEDS: HYDROCODONE/APAP (5/325) TAB PO (04:31)
[2018-06-09] MEDS: ONDANSETRON 4 MG INJ IV (04:31)
[2018-06-09] MEDS: LEVOTHYROXINE 88 MCG TAB PO (06:27)
[2018-06-09] MEDS: HEPARIN 5,000 UNIT/1 ML VIAL SC (06:32)
[2018-06-09] MEDS: INSULIN ASPART [NOVOLOG] 3 ML PEN SC ×3 (07:54→12:14)
[2018-06-09] MEDS: ASPIRIN (EC) 81 MG TAB PO (08:09)
[2018-06-09] MEDS: BENAZEPRIL 20 MG TAB PO (08:09)
[2018-06-09] MEDS: AMLODIPINE 5 MG TAB PO (08:09)
[2018-06-09] MEDS: CARISOPRODOL 350 MG TAB PO ×2 (08:09→13:00)
[2018-06-09] MEDS: LIDOCAINE 5% PATCH TD (08:10)
[2018-06-09] MEDS: FLUTICASONE/VILANTEROL 100-25 INH (08:11)
[2018-06-09] MEDS: SOD FERRIC GLUC COMPLX 125 MG in SOD CHLORIDE 0.9% 100 ML IVPB (11:02)
== END 2018-06-09 13:10 | disposition home or self-care (01) | DRG 313 ==
LOC: 6WM 22:29 → E/R 16:24
DX: R07.9 Chest pain, unspecified (principal); Z68.41 Body mass index [BMI] 40.0-44.9, adult; M50.00 Cervical disc disorder with myelopathy, unspecified cervical region; J44.9 Chronic obstructive pulmonary disease, unspecified; E03.9 Hypothyroidism, unspecified; I10 Essential (primary) hypertension; E66.01 Morbid (severe) obesity due to excess calories; M50.10 Cervical disc disorder with radiculopathy, unspecified cervical region; E11.9 Type 2 diabetes mellitus without complications
CPT/HCPCS: 36415; 71045; 72040; 72125; 80053; 80061; 82550; 82553; 82728; 82962; 83036; 83540; 83735; 84443; 84484; 85025; 85610; 85730; 93005; 96374; 96375; 97162; 99285-25; G0378

== ENCOUNTER 2018-07-03 17:56 | Inpatient (IN) | payer MEDICARE, OTHER ==
[2018-07-03 18:10] LABS: HEMATOCRIT 44.7 % (37.0-47.0); HEMOGLOBIN 14.5 g/dl (12.0-16.0); MEAN CORPUSCULAR HEMOGLOBIN 24.5 pg (29.0-33.0); MEAN CORPUSCULAR HGB CONC 32.4 g/dl (32.0-37.0); MEAN CORPUSCULAR VOLUME 75.5 fl (82.0-101.0); MEAN PLATELET VOLUME 10.6 fl (7.4-10.4); PLATELET COUNT 276 10^3/UL (140-415); RED BLOOD COUNT 5.92 10^6/ul (4.20-5.40)
[2018-07-03 18:13] LABS: ADD MAN DIFF? YES
[2018-07-03 18:29] LABS: INR 0.89; PROTIME 12.2 Sec (11.9-14.9)
[2018-07-03 18:30] LABS: HEMOGLOBIN A1C 8.1 % (0-5.9)
[2018-07-03 18:30] LABS: PARTIAL THROMBOPLASTIN TIME 27.4 Sec (23.0-35.0)
[2018-07-03 18:34] LABS: ANION GAP 6 (5-13); BLOOD UREA NITROGEN 26 mg/dl (7-20); CALCIUM 10.7 mg/dl (8.4-10.2); CARBON DIOXIDE 31 mmol/L (21-31); CHLORIDE 100 mmol/L (97-110); CHOL/HDL RATIO 3.7 RATIO; CHOLESTEROL 151 mg/dl (100-200); CREATINE KINASE 60 IU/L (23-200); CREATININE 0.72 mg/dl (0.44-1.00); Estimated GFR > 60 mL/min (>60); GLUCOSE 131 mg/dl (70-220); HDL CHOLESTEROL 40 mg/dl (33-92); LDL CHOLESTEROL,CALCULATED 87 mg/dl; POTASSIUM 3.5 mmol/L (3.5-5.1); SODIUM 137 mmol/L (135-144); TRIGLYCERIDES 120 mg/dl (0-149)
[2018-07-03 18:45] LABS: ETHANOL < 10.0 mg/dl (0-0)
[2018-07-03 18:46] LABS: CK INDEX 0.9; CK-MB 0.52 ng/ml (0.0-2.4); TROPONIN-I < 0.012 ng/ml (0.000-0.120)
[2018-07-03 18:55] LABS: GIANT THROMBO% (M) 1 % (0-0); LYMPHOCYTES #M 5.4 10^3/ul (0.8-2.9); LYMPHOCYTES % (M) 60 % (15-51); MONOCYTE #M 0.2 10^3/ul (0.3-0.9); MONOCYTES % (M) 3 % (0-11); OVALOCYTES 1+ (0-0); PLATELET ESTIMATE NORMAL; POIKILOCYTOSIS 1+ (0-0); POLYCHROMASIA 1+ (0-0); REACTIVE LYMPHOCYTES #M 0.6 10^3/ul (0.0-0.0); REACTIVE LYMPHOCYTES% (M) 7 % (0-0); SEGMENTED NEUTROPHILS (M) % 30 % (39-77); SMUDGE%M 4 % (0-0)
[2018-07-03] MEDS: SOD CHLORIDE 0.9% 1,000 ML IV (19:16)
[2018-07-03] MEDS: ONDANSETRON 4 MG INJ IV (19:16)
[2018-07-03] MEDS: morphine 4 MG/ML VIAL IV (19:16)
[2018-07-03] MEDS ORDERED: MAGNESIUM HYDROXIDE 30ML CUP PO (20:00)
[2018-07-03] MEDS ORDERED: NITROGLYCERIN (SL) 0.4 MG TAB SL (20:00)
[2018-07-03] MEDS ORDERED: ALBUTEROL HFA 8 GM INHALER INH (20:00)
[2018-07-03] MEDS ORDERED: morphine 2 MG INJ IV (20:00)
[2018-07-03] MEDS ORDERED: ASPIRIN (EC) 325 MG TAB PO (20:00)
[2018-07-03] MEDS ORDERED: ONDANSETRON 4 MG INJ IV ×2 (20:00→20:30)
[2018-07-03] MEDS ORDERED: DOCUSATE SODIUM 100 MG CAP PO (20:00)
[2018-07-03] MEDS ORDERED: ALBUTEROL/IPRATROPIUM (NEB) 3 ML AMP HHN (20:00)
[2018-07-03] MEDS ORDERED: NACL 0.9% 3 ML SYG IV (20:00)
[2018-07-03] MEDS ORDERED: hydrALAzine 20 MG INJ IV (20:00)
[2018-07-03] MEDS ORDERED: GLUCAGON 1 MG INJ IM (20:30)
[2018-07-03] MEDS ORDERED: DEXTROSE 50% 50 ML SYRINGE IV ×2 (20:30)
[2018-07-03] MEDS ORDERED: GLUCOSE GEL 15 GRAM TUBE PO ×2 (20:30)
[2018-07-03] MEDS ORDERED: GLUCOSE GEL 15 GRAM TUBE BUCCAL (20:30)
[2018-07-03] MEDS ORDERED: ACETAMINOPHEN 325 MG TAB PO (20:30)
[2018-07-03] MEDS: ARFORMOTEROL TARTRATE 15MCG/2 ML AMP INH (20:45)
[2018-07-03] MEDS ORDERED: NON-FORMULARY/PATIENT OWN MED (Salmeterol Xinaf/Fluticasone* (Advair*) 1 INH) INHALATION (21:00)
[2018-07-03] MEDS: HEPARIN 5,000 UNIT/1 ML VIAL SC (21:00)
[2018-07-03] MEDS: BUDESONIDE (NEB) 0.5MG/2ML AMP INH (21:33)
[2018-07-03] MEDS: RANITIDINE 150 MG TAB PO (22:46)
[2018-07-03] MEDS: ASPIRIN 81 MG TAB PO (22:46)
[2018-07-03] MEDS: ATORVASTATIN 80 MG TAB PO (22:47)
[2018-07-03] MEDS: NICOTINE (21 MG/24 HR) PATCH TRANSDERM (22:48)
[2018-07-03] MEDS: INSULIN DETEMIR [LEVEMIR] (100 UNITS/ML) SYG SC (23:08)
[2018-07-03] MEDS: INSULIN ASPART [NOVOLOG] 3 ML PEN SC (23:08)
[2018-07-03] MEDS: HYDROmorphONE 0.5 MG/0.5 ML SYG IV (23:25)
[2018-07-03 23:56] LABS: CREATINE KINASE 59 IU/L (23-200)
[2018-07-04 00:10] LABS: CK INDEX 0.8; CK-MB 0.49 ng/ml (0.0-2.4); TROPONIN-I < 0.012 ng/ml (0.000-0.120)
[2018-07-04] MEDS ORDERED: ACCU-CHEK XX (02:00)
[2018-07-04] MEDS: morphine 4 MG/ML VIAL IV ×4 (05:00→19:35)
[2018-07-04] MEDS ORDERED: LEVOTHYROXINE 88 MCG TAB (05:26)
[2018-07-04 05:40] LABS: ADD MAN DIFF? NO
[2018-07-04 05:51] LABS: HEMOGLOBIN A1C 8.1 % (0-5.9)
[2018-07-04 05:52] LABS: BASOPHILS % 0.5 % (0.0-2.0); EOSINOPHILS # 0.3 10^3/ul (0.0-0.5); EOSINOPHILS % 3.7 % (0.0-7.0); HEMATOCRIT 40.2 % (37.0-47.0); HEMOGLOBIN 12.8 g/dl (12.0-16.0); LYMPHOCYTES # 4.3 10^3/ul (0.8-2.9); LYMPHOCYTES % 53.5 % (15.0-51.0); MEAN CORPUSCULAR HEMOGLOBIN 24.5 pg (29.0-33.0); MEAN CORPUSCULAR HGB CONC 31.8 g/dl (32.0-37.0); MEAN PLATELET VOLUME 11.5 fl (7.4-10.4); MONOCYTE # 0.6 10^3/ul (0.3-0.9); MONOCYTES % 7.5 % (0.0-11.0); NEUTROPHIL # 2.8 10^3/ul (1.6-7.5); NEUTROPHILS % 34.2 % (39.0-77.0); PLATELET COUNT 253 10^3/UL (140-415); RED BLOOD COUNT 5.22 10^6/ul (4.20-5.40); RED CELL DISTRIBUTION WIDTH 16.9 % (11.5-14.5)
[2018-07-04 05:52] LABS: WHITE BLOOD COUNT 8.1 10^3/ul (4.8-10.8)
[2018-07-04 06:01] LABS: CREATINE KINASE 52 IU/L (23-200)
[2018-07-04 06:02] LABS: CHOL/HDL RATIO 3.4 RATIO; HDL CHOLESTEROL 35 mg/dl (33-92); LDL CHOLESTEROL,CALCULATED 54 mg/dl; TRIGLYCERIDES 159 mg/dl (0-149)
[2018-07-04 06:02] LABS: CHOLESTEROL 121 mg/dl (100-200)
[2018-07-04] MEDS: LEVOTHYROXINE 88 MCG TAB PO (06:03)
[2018-07-04 06:07] LABS: ANION GAP 4 (5-13); BLOOD UREA NITROGEN 30 mg/dl (7-20); CALCIUM 9.5 mg/dl (8.4-10.2); CARBON DIOXIDE 31 mmol/L (21-31); CHLORIDE 102 mmol/L (97-110); CREATININE 0.84 mg/dl (0.44-1.00); Estimated GFR > 60 mL/min (>60); GLUCOSE 261 mg/dl (70-220); MAGNESIUM 1.6 mg/dl (1.7-2.5); PHOSPHORUS 5.5 mg/dl (2.5-4.9); POTASSIUM 4.2 mmol/L (3.5-5.1); SODIUM 137 mmol/L (135-144)
[2018-07-04 06:13] LABS: CK INDEX 0.8; CK-MB 0.42 ng/ml (0.0-2.4); TROPONIN-I < 0.012 ng/ml (0.000-0.120)
[2018-07-04 06:48] LABS: THYROID STIMULATING HORMONE < 0.015 MIU/L (0.465-4.680)
[2018-07-04] MEDS: FERROUS SULFATE (EC) 325 MG TAB PO (08:18)
[2018-07-04] MEDS: ASCORBIC ACID 500 MG TAB PO (08:18)
[2018-07-04] MEDS: ASPIRIN (EC) 325 MG TAB PO (08:18)
[2018-07-04] MEDS: HEPARIN 5,000 UNIT/1 ML VIAL SC ×2 (08:32→20:59)
[2018-07-04] MEDS: INSULIN ASPART [NOVOLOG] 3 ML PEN SC ×3 (08:32→23:51)
[2018-07-04] MEDS ORDERED: NICOTINE (21 MG/24 HR) PATCH TRANSDERM (09:00)
[2018-07-04] MEDS: BUDESONIDE (NEB) 0.5MG/2ML AMP INH ×3 (09:07→21:36)
[2018-07-04] MEDS: ARFORMOTEROL TARTRATE 15MCG/2 ML AMP INH ×2 (09:07→21:54)
[2018-07-04] MEDS: LORAZEPAM 2 MG INJ IV ×3 (16:51→16:52)
[2018-07-04] MEDS: NICOTINE (21 MG/24 HR) PATCH TRANSDERM (20:46)
[2018-07-04] MEDS: RANITIDINE 150 MG TAB PO (20:46)
[2018-07-04] MEDS: ATORVASTATIN 80 MG TAB PO (20:46)
[2018-07-04] MEDS: INSULIN DETEMIR [LEVEMIR] (100 UNITS/ML) SYG SC (21:00)
[2018-07-04] MEDS ORDERED: VITAMIN A & D 5 GM OINT PACKET TOP (21:16)
[2018-07-04] MEDS: ACETAMINOPHEN 325 MG TAB PO (21:24)
[2018-07-05] MEDS: morphine 4 MG/ML VIAL IV ×4 (00:54→13:49)
[2018-07-05] MEDS: LEVOTHYROXINE 88 MCG TAB PO (07:25)
[2018-07-05 07:51] LABS: ADD MAN DIFF? NO
[2018-07-05 08:02] LABS: WHITE BLOOD COUNT 6.6 10^3/ul (4.8-10.8)
[2018-07-05 08:02] LABS: BASOPHILS % 0.5 % (0.0-2.0); EOSINOPHILS # 0.3 10^3/ul (0.0-0.5); HEMATOCRIT 39.1 % (37.0-47.0); HEMOGLOBIN 12.2 g/dl (12.0-16.0); LYMPHOCYTES # 3.6 10^3/ul (0.8-2.9); LYMPHOCYTES % 53.8 % (15.0-51.0); MEAN CORPUSCULAR HEMOGLOBIN 24.4 pg (29.0-33.0); MEAN CORPUSCULAR HGB CONC 31.2 g/dl (32.0-37.0); MEAN CORPUSCULAR VOLUME 78.2 fl (82.0-101.0); MEAN PLATELET VOLUME 11.5 fl (7.4-10.4); MONOCYTE # 0.6 10^3/ul (0.3-0.9); MONOCYTES % 9.7 % (0.0-11.0); NEUTROPHILS % 30.2 % (39.0-77.0); PLATELET COUNT 218 10^3/UL (140-415); RED CELL DISTRIBUTION WIDTH 16.9 % (11.5-14.5)
[2018-07-05 08:22] LABS: PHOSPHORUS 3.8 mg/dl (2.5-4.9)
[2018-07-05 08:22] LABS: MAGNESIUM 1.6 mg/dl (1.7-2.5)
[2018-07-05 08:24] LABS: ANION GAP 7 (5-13); BLOOD UREA NITROGEN 21 mg/dl (7-20); CALCIUM 9.9 mg/dl (8.4-10.2); CARBON DIOXIDE 31 mmol/L (21-31); CHLORIDE 99 mmol/L (97-110); CREATININE 0.52 mg/dl (0.44-1.00); Estimated GFR > 60 mL/min (>60); GLUCOSE 202 mg/dl (70-220); POTASSIUM 4.5 mmol/L (3.5-5.1); SODIUM 137 mmol/L (135-144)
[2018-07-05] MEDS: ASPIRIN (EC) 325 MG TAB PO (08:37)
[2018-07-05] MEDS: FERROUS SULFATE (EC) 325 MG TAB PO (08:37)
[2018-07-05] MEDS: ASCORBIC ACID 500 MG TAB PO (08:37)
[2018-07-05] MEDS: HYDROCODONE/APAP (5/325) TAB PO ×2 (08:38→16:15)
[2018-07-05] MEDS: HEPARIN 5,000 UNIT/1 ML VIAL SC (09:08)
[2018-07-05] MEDS: ARFORMOTEROL TARTRATE 15MCG/2 ML AMP INH (09:47)
[2018-07-05] MEDS: BUDESONIDE (NEB) 0.5MG/2ML AMP INH (09:48)
[2018-07-05] MEDS: INSULIN ASPART [NOVOLOG] 3 ML PEN SC ×3 (10:52→12:17)
[2018-07-05] MEDS: MAGNESIUM SULFATE 2 GM/50 ML 50 ML IVPB (12:50)
== END 2018-07-05 16:52 | disposition home or self-care (01) | DRG 69 ==
LOC: E/R 17:56 → 6WM 20:44
DX: G45.9 Transient cerebral ischemic attack, unspecified (principal); I50.30 Unspecified diastolic (congestive) heart failure; J44.9 Chronic obstructive pulmonary disease, unspecified; Z87.891 Personal history of nicotine dependence; M54.5 Low back pain; R10.9 Unspecified abdominal pain; E66.9 Obesity, unspecified; Z68.35 Body mass index [BMI] 35.0-35.9, adult; E11.42 Type 2 diabetes mellitus with diabetic polyneuropathy; E03.9 Hypothyroidism, unspecified; R47.1 Dysarthria and anarthria; R60.9 Edema, unspecified; R47.81 Slurred speech; I11.0 Hypertensive heart disease with heart failure
CPT/HCPCS: 36415; 70450; 70544; 70549; 70551; 71045; 72125; 74176; 80048; 80061; 80307; 82550; 82553; 82962; 83036; 83735; 84100; 84439; 84443; 84484; 85025; 85610; 85730; 86850; 86900; 86901; 93005; 93880; 94640; 94664; 95819; 96374; 96375; 97116; 97161; 97167; 97530; 99291-25

== ENCOUNTER 2018-08-10 22:51 | Emergency (ER) | payer MEDICARE, OTHER ==
[2018-08-11 01:18] LABS: ADD MAN DIFF? NO
[2018-08-11 01:20] LABS: WHITE BLOOD COUNT 8.5 10^3/ul (4.8-10.8)
[2018-08-11 01:20] LABS: BASOPHILS % 0.4 % (0.0-2.0); EOSINOPHILS # 0.2 10^3/ul (0.0-0.5); EOSINOPHILS % 2.5 % (0.0-7.0); HEMATOCRIT 41.3 % (37.0-47.0); HEMOGLOBIN 13.3 g/dl (12.0-16.0); LYMPHOCYTES # 3.9 10^3/ul (0.8-2.9); LYMPHOCYTES % 45.4 % (15.0-51.0); MEAN CORPUSCULAR HEMOGLOBIN 25.2 pg (29.0-33.0); MEAN CORPUSCULAR HGB CONC 32.2 g/dl (32.0-37.0); MEAN CORPUSCULAR VOLUME 78.4 fl (82.0-101.0); MEAN PLATELET VOLUME 10.9 fl (7.4-10.4); MONOCYTE # 0.5 10^3/ul (0.3-0.9); MONOCYTES % 6.1 % (0.0-11.0); NEUTROPHIL # 3.9 10^3/ul (1.6-7.5); NEUTROPHILS % 45.2 % (39.0-77.0); PLATELET COUNT 277 10^3/UL (140-415); RED BLOOD COUNT 5.27 10^6/ul (4.20-5.40); RED CELL DISTRIBUTION WIDTH 16.2 % (11.5-14.5)
[2018-08-11] MEDS: ONDANSETRON 4 MG INJ IV (01:37)
[2018-08-11] MEDS: morphine 4 MG/ML VIAL IV (01:37)
[2018-08-11] MEDS: SOD CHLORIDE 0.9% 500 ML IV (01:37)
[2018-08-11 01:38] LABS: ALANINE AMINOTRANSFERASE 20 IU/L (13-69); ALBUMIN 3.7 g/dl (3.3-4.9); ALBUMIN/GLOBULIN RATIO 1.27; ALKALINE PHOSPHATASE 137 IU/L (42-121); ANION GAP 12 (5-13); ASPARTATE AMINO TRANSFERASE 22 IU/L (15-46); BILIRUBIN,INDIRECT 0.2 mg/dl (0-1.1); BILIRUBIN,TOTAL 0.2 mg/dl (0.2-1.3); BLOOD UREA NITROGEN 13 mg/dl (7-20); CARBON DIOXIDE 26 mmol/L (21-31); CHLORIDE 103 mmol/L (97-110); CREATININE 0.52 mg/dl (0.44-1.00); Estimated GFR > 60 mL/min (>60); GLUCOSE 302 mg/dl (70-220); LIPASE 110 U/L (23-300); POTASSIUM 3.8 mmol/L (3.5-5.1); SODIUM 141 mmol/L (135-144); TOTAL PROTEIN 6.6 g/dl (6.1-8.1)
[2018-08-11 01:40] LABS: ADD UMIC YES; UR ASCORBIC ACID NEGATIVE (NEGATIVE); UR BACTERIA FEW /HPF (NONE SEEN); UR BILIRUBIN (Dip) NEGATIVE (NEGATIVE); UR BLOOD (Dip) NEGATIVE (NEGATIVE); UR CLARITY CLOUDY (CLEAR); UR COLOR YELLOW (YELLOW); UR GLUCOSE (Dip) 3+ mg/dL (NEGATIVE); UR KETONES (Dip) NEGATIVE (NEGATIVE); UR LEUKOCYTE ESTERASE (Dip) 1+ Leu/ul (NEGATIVE); UR MUCUS FEW /HPF (NONE SEEN); UR NITRITE (Dip) NEGATIVE (NEGATIVE); UR RBC 3 /HPF (0-5); UR SPECIFIC GRAVITY (Dip) 1.022 (1.003-1.030); UR SQUAMOUS EPITHELIAL CELL MANY /HPF (FEW); UR TOTAL PROTEIN (Dip) NEGATIVE (NEGATIVE); UR UROBILINOGEN (Dip) 1+ mg/dL (NEGATIVE); UR WBC 10 /HPF (0-5)
[2018-08-11 01:50] LABS: TROPONIN-I < 0.012 ng/ml (0.000-0.120)
[2018-08-11] MEDS: HYDROmorphONE 0.5 MG/0.5 ML SYG IV (02:44)
[2018-08-11] MEDS: CEFTRIAXONE 1 GM/50 ML (PMX) 50 ML IVPB (02:45)
== END 2018-08-11 03:19 | disposition home or self-care (01) ==
LOC: E/R 22:51
DX: R10.30 Lower abdominal pain, unspecified (principal); J44.9 Chronic obstructive pulmonary disease, unspecified; I50.9 Heart failure, unspecified; I10 Essential (primary) hypertension; E11.9 Type 2 diabetes mellitus without complications; E03.9 Hypothyroidism, unspecified; E66.9 Obesity, unspecified; F17.210 Nicotine dependence, cigarettes, uncomplicated; Z79.4 Long term (current) use of insulin; Z79.82 Long term (current) use of aspirin
CPT/HCPCS: 36415; 71045; 74176; 80053; 81001; 83690; 84484; 85025; 96374; 96375; 99285-25

== ENCOUNTER 2018-08-22 21:34 | Inpatient (IN) | payer MEDICARE, OTHER ==
[2018-08-23 01:08] LABS: ADD MAN DIFF? NO
[2018-08-23] MEDS: SOD CHLORIDE 0.9% 1,000 ML IV (01:11)
[2018-08-23] MEDS: ONDANSETRON 4 MG INJ IV (01:11)
[2018-08-23] MEDS: HYDROmorphONE 1 MG/ML SYG IV (01:11)
[2018-08-23 01:12] LABS: BASOPHIL # 0.1 10^3/ul (0.0-0.1); BASOPHILS % 0.5 % (0.0-2.0); EOSINOPHILS # 0.2 10^3/ul (0.0-0.5); HEMATOCRIT 45.2 % (37.0-47.0); HEMOGLOBIN 14.6 g/dl (12.0-16.0); LYMPHOCYTES # 4.6 10^3/ul (0.8-2.9); LYMPHOCYTES % 41.7 % (15.0-51.0); MEAN CORPUSCULAR HEMOGLOBIN 25.5 pg (29.0-33.0); MEAN CORPUSCULAR HGB CONC 32.3 g/dl (32.0-37.0); MEAN PLATELET VOLUME 11.1 fl (7.4-10.4); MONOCYTE # 0.6 10^3/ul (0.3-0.9); NEUTROPHIL # 5.5 10^3/ul (1.6-7.5); NEUTROPHILS % 50.3 % (39.0-77.0); PLATELET COUNT 259 10^3/UL (140-415); RED BLOOD COUNT 5.72 10^6/ul (4.20-5.40); RED CELL DISTRIBUTION WIDTH 15.9 % (11.5-14.5)
[2018-08-23 01:23] LABS: ADD UMIC NO; UR ASCORBIC ACID NEGATIVE (NEGATIVE); UR BACTERIA FEW /HPF (NONE SEEN); UR BILIRUBIN (Dip) NEGATIVE (NEGATIVE); UR BLOOD (Dip) NEGATIVE (NEGATIVE); UR CLARITY SLIGHTLY CLOUDY (CLEAR); UR COLOR YELLOW (YELLOW); UR GLUCOSE (Dip) NEGATIVE (NEGATIVE); UR KETONES (Dip) NEGATIVE (NEGATIVE); UR LEUKOCYTE ESTERASE (Dip) NEGATIVE Leu/ul (NEGATIVE); UR NITRITE (Dip) NEGATIVE (NEGATIVE); UR RBC 2 /HPF (0-5); UR SPECIFIC GRAVITY (Dip) 1.019 (1.003-1.030); UR SQUAMOUS EPITHELIAL CELL FEW /HPF (FEW); UR TOTAL PROTEIN (Dip) NEGATIVE (NEGATIVE); UR UROBILINOGEN (Dip) NEGATIVE (NEGATIVE); UR WBC 5 /HPF (0-5)
[2018-08-23 01:29] LABS: ALANINE AMINOTRANSFERASE 23 IU/L (13-69); ALBUMIN 4.1 g/dl (3.3-4.9); ALBUMIN/GLOBULIN RATIO 1.28; ALKALINE PHOSPHATASE 132 IU/L (42-121); ANION GAP 13 (5-13); ASPARTATE AMINO TRANSFERASE 26 IU/L (15-46); BILIRUBIN,INDIRECT 0.2 mg/dl (0-1.1); BILIRUBIN,TOTAL 0.2 mg/dl (0.2-1.3); BLOOD UREA NITROGEN 11 mg/dl (7-20); CALCIUM 10.8 mg/dl (8.4-10.2); CARBON DIOXIDE 29 mmol/L (21-31); CHLORIDE 96 mmol/L (97-110); CREATININE 0.54 mg/dl (0.44-1.00); Estimated GFR > 60 mL/min (>60); GLUCOSE 166 mg/dl (70-220); LIPASE 122 U/L (23-300); SODIUM 138 mmol/L (135-144); TOTAL PROTEIN 7.3 g/dl (6.1-8.1)
[2018-08-23] MEDS: HYDROmorphONE 0.5 MG/0.5 ML SYG IV (04:28)
[2018-08-23] MEDS: metroNIDAZOLE 500 MG/NS (PMX) 100 ML IVPB (05:21)
[2018-08-23] MEDS ORDERED: NACL 0.9% 3 ML SYG IV (05:30)
[2018-08-23] MEDS ORDERED: ALBUTEROL/IPRATROPIUM (NEB) 3 ML AMP HHN (05:30)
[2018-08-23] MEDS: PIPER-TAZO 3.375 GM IV (PMX) 100 ML IVPB ×4 (05:31→17:19)
[2018-08-23] MEDS: DEXTROSE 5%-0.45% NACL 1,000 ML IV (06:43)
[2018-08-23] MEDS: morphine 2 MG INJ IV ×4 (08:12→21:36)
[2018-08-23] MEDS: FAMOTIDINE 20 MG INJ IV ×2 (08:12→20:51)
[2018-08-23] MEDS: SOD CHLORIDE 0.45% 1,000 ML IV (11:33)
[2018-08-23] MEDS: INSULIN ASPART [NOVOLOG] 3 ML PEN SC ×3 (11:59→20:26)
[2018-08-23] MEDS ORDERED: GLUCOSE GEL 15 GRAM TUBE BUCCAL (12:00)
[2018-08-23] MEDS ORDERED: GLUCAGON 1 MG INJ IM (12:00)
[2018-08-23] MEDS ORDERED: DEXTROSE 50% 50 ML SYRINGE IV ×2 (12:00)
[2018-08-23] MEDS ORDERED: GLUCOSE GEL 15 GRAM TUBE PO ×2 (12:00)
[2018-08-23] MEDS: HEPARIN 5,000 UNIT/1 ML VIAL SC (20:57)
[2018-08-23] MEDS ORDERED: Insulin NOVOLOG SS MILD Algorithm (SS with meals and bedtime) SC (22:06)
[2018-08-24] MEDS: PIPER-TAZO 3.375 GM IV (PMX) 100 ML IVPB ×4 (00:04→17:59)
[2018-08-24] MEDS: morphine 2 MG INJ IV ×2 (01:43→05:49)
[2018-08-24] MEDS: ACCUCHECK AT 2AM (Patients on SS coverage) XX (02:00)
[2018-08-24] MEDS: SOD CHLORIDE 0.45% 1,000 ML IV ×3 (05:21→17:24)
[2018-08-24] MEDS: LEVOTHYROXINE 100 MCG TAB PO (05:21)
[2018-08-24 05:56] LABS: ADD MAN DIFF? NO
[2018-08-24 06:04] LABS: BASOPHILS % 0.4 % (0.0-2.0); EOSINOPHILS # 0.2 10^3/ul (0.0-0.5); EOSINOPHILS % 4.3 % (0.0-7.0); HEMATOCRIT 36.6 % (37.0-47.0); HEMOGLOBIN 11.9 g/dl (12.0-16.0); LYMPHOCYTES # 3.3 10^3/ul (0.8-2.9); LYMPHOCYTES % 62.5 % (15.0-51.0); MEAN CORPUSCULAR HEMOGLOBIN 25.5 pg (29.0-33.0); MEAN CORPUSCULAR HGB CONC 32.5 g/dl (32.0-37.0); MEAN CORPUSCULAR VOLUME 78.5 fl (82.0-101.0); MEAN PLATELET VOLUME 10.8 fl (7.4-10.4); MONOCYTE # 0.4 10^3/ul (0.3-0.9); MONOCYTES % 8.3 % (0.0-11.0); NEUTROPHIL # 1.3 10^3/ul (1.6-7.5); NEUTROPHILS % 24.3 % (39.0-77.0); PLATELET COUNT 204 10^3/UL (140-415); RED BLOOD COUNT 4.66 10^6/ul (4.20-5.40); RED CELL DISTRIBUTION WIDTH 15.8 % (11.5-14.5)
[2018-08-24 06:04] LABS: WHITE BLOOD COUNT 5.3 10^3/ul (4.8-10.8)
[2018-08-24 06:48] LABS: ALANINE AMINOTRANSFERASE 20 IU/L (13-69); ALBUMIN 3.1 g/dl (3.3-4.9); ALBUMIN/GLOBULIN RATIO 1.24; ALKALINE PHOSPHATASE 89 IU/L (42-121); ANION GAP 9 (5-13); ASPARTATE AMINO TRANSFERASE 20 IU/L (15-46); BILIRUBIN,INDIRECT 0.2 mg/dl (0-1.1); BILIRUBIN,TOTAL 0.2 mg/dl (0.2-1.3); BLOOD UREA NITROGEN 7 mg/dl (7-20); CALCIUM 9.5 mg/dl (8.4-10.2); CARBON DIOXIDE 29 mmol/L (21-31); CHLORIDE 104 mmol/L (97-110); CREATININE 0.47 mg/dl (0.44-1.00); Estimated GFR > 60 mL/min (>60); GLUCOSE 200 mg/dl (70-220); MAGNESIUM 1.4 mg/dl (1.7-2.5); PHOSPHORUS 2.9 mg/dl (2.5-4.9); SODIUM 142 mmol/L (135-144); TOTAL PROTEIN 5.6 g/dl (6.1-8.1)
[2018-08-24] MEDS: Insulin NOVOLOG SS MILD Algorithm (SS with meals and bedtime) SC ×4 (07:30→21:40)
[2018-08-24] MEDS ORDERED: INSULIN ASPART [NOVOLOG] 3 ML PEN SC (08:00)
[2018-08-24] MEDS: INSULIN GLARGINE [LANTus] (100 UNITS/ML) SYG SC (08:33)
[2018-08-24] MEDS: HEPARIN 5,000 UNIT/1 ML VIAL SC ×2 (08:34→20:49)
[2018-08-24] MEDS: FAMOTIDINE 20 MG INJ IV ×2 (08:34→20:47)
[2018-08-24] MEDS: HYDROmorphONE 1 MG/ML SYG IV ×4 (09:43→20:48)
[2018-08-24] MEDS: MAGNESIUM SULFATE 4 GM/100 ML 100 ML IVPB (10:42)
[2018-08-24] MEDS: BENAZEPRIL 20 MG TAB PO (10:42)
[2018-08-24] MEDS: AMLODIPINE 5 MG TAB PO (15:15)
[2018-08-24] MEDS: ONDANSETRON 4 MG INJ IV (20:48)
[2018-08-25] MEDS: PIPER-TAZO 3.375 GM IV (PMX) 100 ML IVPB ×4 (02:18→17:36)
[2018-08-25] MEDS: HYDROmorphONE 1 MG/ML SYG IV ×6 (02:18→21:02)
[2018-08-25] MEDS: ONDANSETRON 4 MG INJ IV ×3 (02:18→17:40)
[2018-08-25] MEDS: ACCUCHECK AT 2AM (Patients on SS coverage) XX (02:38)
[2018-08-25] MEDS: SOD CHLORIDE 0.45% 1,000 ML IV ×2 (03:46→15:06)
[2018-08-25 05:49] LABS: ADD MAN DIFF? NO
[2018-08-25 05:55] LABS: BASOPHILS % 0.4 % (0.0-2.0); EOSINOPHILS # 0.3 10^3/ul (0.0-0.5); EOSINOPHILS % 5.2 % (0.0-7.0); HEMATOCRIT 37.4 % (37.0-47.0); LYMPHOCYTES # 2.6 10^3/ul (0.8-2.9); LYMPHOCYTES % 52.3 % (15.0-51.0); MEAN CORPUSCULAR HEMOGLOBIN 25.3 pg (29.0-33.0); MEAN CORPUSCULAR HGB CONC 32.1 g/dl (32.0-37.0); MEAN CORPUSCULAR VOLUME 78.9 fl (82.0-101.0); MEAN PLATELET VOLUME 10.7 fl (7.4-10.4); MONOCYTE # 0.4 10^3/ul (0.3-0.9); MONOCYTES % 7.8 % (0.0-11.0); NEUTROPHIL # 1.7 10^3/ul (1.6-7.5); NEUTROPHILS % 34.1 % (39.0-77.0); PLATELET COUNT 213 10^3/UL (140-415); RED BLOOD COUNT 4.74 10^6/ul (4.20-5.40); RED CELL DISTRIBUTION WIDTH 15.9 % (11.5-14.5)
[2018-08-25] MEDS: LEVOTHYROXINE 100 MCG TAB PO (06:18)
[2018-08-25 06:51] LABS: ANION GAP 6 (5-13); BLOOD UREA NITROGEN 7 mg/dl (7-20); CALCIUM 9.6 mg/dl (8.4-10.2); CARBON DIOXIDE 30 mmol/L (21-31); CHLORIDE 107 mmol/L (97-110); Estimated GFR > 60 mL/min (>60); GLUCOSE 186 mg/dl (70-220); POTASSIUM 4.2 mmol/L (3.5-5.1); SODIUM 143 mmol/L (135-144)
[2018-08-25] MEDS: HEPARIN 5,000 UNIT/1 ML VIAL SC ×2 (08:18→21:01)
[2018-08-25] MEDS: INSULIN GLARGINE [LANTus] (100 UNITS/ML) SYG SC (08:18)
[2018-08-25] MEDS: Insulin NOVOLOG SS MILD Algorithm (SS with meals and bedtime) SC ×4 (08:18→20:58)
[2018-08-25] MEDS: FAMOTIDINE 20 MG INJ IV ×2 (08:21→21:01)
[2018-08-25] MEDS: BENAZEPRIL 20 MG TAB PO (08:21)
[2018-08-25] MEDS: AMLODIPINE 5 MG TAB PO (08:21)
[2018-08-26] MEDS: SOD CHLORIDE 0.45% 1,000 ML IV ×3 (00:05→11:51)
[2018-08-26] MEDS: HYDROmorphONE 1 MG/ML SYG IV ×5 (00:05→13:18)
[2018-08-26] MEDS: ONDANSETRON 4 MG INJ IV ×3 (00:05→13:37)
[2018-08-26] MEDS: PIPER-TAZO 3.375 GM IV (PMX) 100 ML IVPB ×3 (00:05→11:47)
[2018-08-26] MEDS: ACCUCHECK AT 2AM (Patients on SS coverage) XX (02:00)
[2018-08-26] MEDS: LEVOTHYROXINE 100 MCG TAB PO (05:23)
[2018-08-26 06:20] LABS: ADD MAN DIFF? NO
[2018-08-26 06:26] LABS: WHITE BLOOD COUNT 5.6 10^3/ul (4.8-10.8)
[2018-08-26 06:26] LABS: BASOPHILS % 0.5 % (0.0-2.0); EOSINOPHILS # 0.2 10^3/ul (0.0-0.5); EOSINOPHILS % 4.1 % (0.0-7.0); HEMATOCRIT 35.7 % (37.0-47.0); HEMOGLOBIN 11.3 g/dl (12.0-16.0); LYMPHOCYTES # 3.1 10^3/ul (0.8-2.9); LYMPHOCYTES % 55.1 % (15.0-51.0); MEAN CORPUSCULAR HGB CONC 31.7 g/dl (32.0-37.0); MEAN PLATELET VOLUME 10.6 fl (7.4-10.4); MONOCYTE # 0.5 10^3/ul (0.3-0.9); NEUTROPHIL # 1.8 10^3/ul (1.6-7.5); NEUTROPHILS % 31.9 % (39.0-77.0); PLATELET COUNT 203 10^3/UL (140-415); RED BLOOD COUNT 4.52 10^6/ul (4.20-5.40); RED CELL DISTRIBUTION WIDTH 15.9 % (11.5-14.5)
[2018-08-26 06:45] LABS: ANION GAP 6 (5-13); BLOOD UREA NITROGEN 9 mg/dl (7-20); CALCIUM 9.7 mg/dl (8.4-10.2); CARBON DIOXIDE 27 mmol/L (21-31); CHLORIDE 108 mmol/L (97-110); Estimated GFR > 60 mL/min (>60); GLUCOSE 224 mg/dl (70-220); POTASSIUM 3.8 mmol/L (3.5-5.1); SODIUM 141 mmol/L (135-144)
[2018-08-26] MEDS: Insulin NOVOLOG SS MILD Algorithm (SS with meals and bedtime) SC ×2 (07:56→11:30)
[2018-08-26] MEDS: HEPARIN 5,000 UNIT/1 ML VIAL SC (07:57)
[2018-08-26] MEDS: INSULIN GLARGINE [LANTus] (100 UNITS/ML) SYG SC (07:57)
[2018-08-26] MEDS: BENAZEPRIL 20 MG TAB PO (07:58)
[2018-08-26] MEDS: AMLODIPINE 5 MG TAB PO (07:58)
[2018-08-26] MEDS: FAMOTIDINE 20 MG INJ IV (08:00)
[2018-08-26] MEDS ORDERED: ACETAMINOPHEN 325 MG TAB PO (09:30)
== END 2018-08-26 15:56 | disposition home or self-care (01) | DRG 392 ==
LOC: E/R 21:34 → PP2 08-23 05:03
PROVIDERS: Internal Medicine
DX: K57.32 Diverticulitis of large intestine without perforation or abscess without bleeding (principal); J44.9 Chronic obstructive pulmonary disease, unspecified; E11.9 Type 2 diabetes mellitus without complications; I10 Essential (primary) hypertension; F17.210 Nicotine dependence, cigarettes, uncomplicated; E03.9 Hypothyroidism, unspecified; Z79.4 Long term (current) use of insulin; Z79.82 Long term (current) use of aspirin; Z90.49 Acquired absence of other specified parts of digestive tract; Z86.73 Personal history of transient ischemic attack (TIA), and cerebral infarction without residual deficits
CPT/HCPCS: 36415; 71045; 74176; 80048; 80053; 81001; 81003; 82962; 83690; 83735; 84100; 85025; 87045; 87086; 96374; 96375; 96376; 99285-25; G0378

== ENCOUNTER 2018-09-20 21:28 | Inpatient (IN) | payer MEDICARE, OTHER ==
[2018-09-21 01:31] LABS: ADD MAN DIFF? NO
[2018-09-21 01:32] LABS: WHITE BLOOD COUNT 9.6 10^3/ul (4.8-10.8)
[2018-09-21 01:32] LABS: BASOPHILS % 0.4 % (0.0-2.0); EOSINOPHILS # 0.3 10^3/ul (0.0-0.5); EOSINOPHILS % 2.9 % (0.0-7.0); HEMATOCRIT 41.7 % (37.0-47.0); HEMOGLOBIN 13.5 g/dl (12.0-16.0); LYMPHOCYTES # 3.9 10^3/ul (0.8-2.9); MEAN CORPUSCULAR HEMOGLOBIN 25.8 pg (29.0-33.0); MEAN CORPUSCULAR HGB CONC 32.4 g/dl (32.0-37.0); MEAN CORPUSCULAR VOLUME 79.6 fl (82.0-101.0); MONOCYTE # 0.4 10^3/ul (0.3-0.9); MONOCYTES % 4.6 % (0.0-11.0); NEUTROPHIL # 4.8 10^3/ul (1.6-7.5); NEUTROPHILS % 50.8 % (39.0-77.0); PLATELET COUNT 227 10^3/UL (140-415); RED BLOOD COUNT 5.24 10^6/ul (4.20-5.40); RED CELL DISTRIBUTION WIDTH 15.2 % (11.5-14.5)
[2018-09-21] MEDS: SOD CHLORIDE 0.9% 500 ML IV (01:32)
[2018-09-21] MEDS: ONDANSETRON 4 MG INJ IV ×2 (01:33→06:22)
[2018-09-21] MEDS: HYDROmorphONE 1 MG/ML SYG IV (01:33)
[2018-09-21 01:47] LABS: ADD UMIC YES; UR ASCORBIC ACID 40 mg/dL (NEGATIVE); UR BACTERIA FEW /HPF (NONE SEEN); UR BILIRUBIN (Dip) NEGATIVE (NEGATIVE); UR BLOOD (Dip) NEGATIVE (NEGATIVE); UR CLARITY SLIGHTLY CLOUDY (CLEAR); UR COLOR YELLOW (YELLOW); UR GLUCOSE (Dip) 2+ mg/dL (NEGATIVE); UR KETONES (Dip) NEGATIVE (NEGATIVE); UR LEUKOCYTE ESTERASE (Dip) TRACE Leu/ul (NEGATIVE); UR NITRITE (Dip) NEGATIVE (NEGATIVE); UR RBC 0 /HPF (0-5); UR SPECIFIC GRAVITY (Dip) 1.024 (1.003-1.030); UR SQUAMOUS EPITHELIAL CELL MODERATE /HPF (FEW); UR TOTAL PROTEIN (Dip) NEGATIVE (NEGATIVE); UR UROBILINOGEN (Dip) NEGATIVE (NEGATIVE); UR WBC 7 /HPF (0-5)
[2018-09-21 01:54] LABS: ALANINE AMINOTRANSFERASE 22 IU/L (13-69); ALBUMIN 3.6 g/dl (3.3-4.9); ALBUMIN/GLOBULIN RATIO 1.33; ALKALINE PHOSPHATASE 116 IU/L (42-121); ANION GAP 8 (5-13); ASPARTATE AMINO TRANSFERASE 24 IU/L (15-46); BILIRUBIN,INDIRECT 0.1 mg/dl (0-1.1); BILIRUBIN,TOTAL 0.1 mg/dl (0.2-1.3); BLOOD UREA NITROGEN 17 mg/dl (7-20); CALCIUM 9.7 mg/dl (8.4-10.2); CARBON DIOXIDE 30 mmol/L (21-31); CHLORIDE 104 mmol/L (97-110); Estimated GFR > 60 mL/min (>60); GLUCOSE 317 mg/dl (70-220); LIPASE 138 U/L (23-300); POTASSIUM 3.6 mmol/L (3.5-5.1); SODIUM 142 mmol/L (135-144); TOTAL PROTEIN 6.3 g/dl (6.1-8.1)
[2018-09-21] MEDS: metroNIDAZOLE 500 MG/NS (PMX) 100 ML IVPB (03:19)
[2018-09-21] MEDS: HYDROmorphONE 0.5 MG/0.5 ML SYG IV ×3 (03:19→20:21)
[2018-09-21] MEDS: CIPROFLOXACIN 400MG/D5W 200 ML IVPB (04:11)
[2018-09-21] MEDS: DIPHENHYDRAMINE 50 MG INJ IV ×2 (04:11→22:29)
[2018-09-21] MEDS ORDERED: NACL 0.9% 3 ML SYG IV (05:30)
[2018-09-21] MEDS ORDERED: ALBUTEROL/IPRATROPIUM (NEB) 3 ML AMP HHN (05:30)
[2018-09-21] MEDS: PIPER-TAZO 3.375 GM IV (PMX) 100 ML IVPB ×3 (06:17→18:32)
[2018-09-21] MEDS: DEXTROSE 5%-0.45% NACL 1,000 ML IV ×3 (06:18→18:32)
[2018-09-21] MEDS: morphine 2 MG INJ IV ×2 (06:22→10:58)
[2018-09-21] MEDS ORDERED: GLUCOSE GEL 15 GRAM TUBE BUCCAL (08:30)
[2018-09-21] MEDS ORDERED: GLUCOSE GEL 15 GRAM TUBE PO ×2 (08:30)
[2018-09-21] MEDS ORDERED: GLUCAGON 1 MG INJ IM (08:30)
[2018-09-21] MEDS ORDERED: DEXTROSE 50% 50 ML SYRINGE IV ×2 (08:30)
[2018-09-21] MEDS: FAMOTIDINE 20 MG INJ IV ×2 (08:56→20:21)
[2018-09-21] MEDS: INSULIN GLARGINE [LANTus] (100 UNITS/ML) SYG SC (09:01)
[2018-09-21] MEDS: INSULIN ASPART [NOVOLOG] 3 ML PEN SC ×4 (09:02→20:58)
[2018-09-22] MEDS: PIPER-TAZO 3.375 GM IV (PMX) 100 ML IVPB ×4 (00:11→19:41)
[2018-09-22] MEDS: DEXTROSE 5%-0.45% NACL 1,000 ML IV ×3 (01:16→20:43)
[2018-09-22] MEDS: HYDROmorphONE 0.5 MG/0.5 ML SYG IV ×5 (01:45→20:42)
[2018-09-22] MEDS: ACCU-CHEK XX (01:46)
[2018-09-22 05:39] LABS: ADD MAN DIFF? NO
[2018-09-22] MEDS: DIPHENHYDRAMINE 50 MG INJ IV (05:39)
[2018-09-22 05:48] LABS: BASOPHILS % 0.4 % (0.0-2.0); EOSINOPHILS # 0.4 10^3/ul (0.0-0.5); EOSINOPHILS % 5.1 % (0.0-7.0); HEMATOCRIT 37.3 % (37.0-47.0); HEMOGLOBIN 11.9 g/dl (12.0-16.0); LYMPHOCYTES # 3.7 10^3/ul (0.8-2.9); LYMPHOCYTES % 52.5 % (15.0-51.0); MEAN CORPUSCULAR HEMOGLOBIN 25.5 pg (29.0-33.0); MEAN CORPUSCULAR HGB CONC 31.9 g/dl (32.0-37.0); MEAN PLATELET VOLUME 11.5 fl (7.4-10.4); MONOCYTE # 0.6 10^3/ul (0.3-0.9); MONOCYTES % 7.9 % (0.0-11.0); NEUTROPHIL # 2.4 10^3/ul (1.6-7.5); NEUTROPHILS % 33.7 % (39.0-77.0); PLATELET COUNT 187 10^3/UL (140-415); RED BLOOD COUNT 4.66 10^6/ul (4.20-5.40); RED CELL DISTRIBUTION WIDTH 15.3 % (11.5-14.5)
[2018-09-22 05:48] LABS: WHITE BLOOD COUNT 7.1 10^3/ul (4.8-10.8)
[2018-09-22 06:30] LABS: ALANINE AMINOTRANSFERASE 20 IU/L (13-69); ALBUMIN/GLOBULIN RATIO 1.25; ALKALINE PHOSPHATASE 75 IU/L (42-121); ANION GAP 5 (5-13); ASPARTATE AMINO TRANSFERASE 25 IU/L (15-46); BILIRUBIN,INDIRECT 0.2 mg/dl (0-1.1); BILIRUBIN,TOTAL 0.2 mg/dl (0.2-1.3); BLOOD UREA NITROGEN 12 mg/dl (7-20); CALCIUM 9.1 mg/dl (8.4-10.2); CARBON DIOXIDE 29 mmol/L (21-31); CHLORIDE 108 mmol/L (97-110); CREATININE 0.52 mg/dl (0.44-1.00); Estimated GFR > 60 mL/min (>60); GLUCOSE 138 mg/dl (70-220); MAGNESIUM 1.4 mg/dl (1.7-2.5); PHOSPHORUS 3.2 mg/dl (2.5-4.9); POTASSIUM 3.6 mmol/L (3.5-5.1); SODIUM 142 mmol/L (135-144); TOTAL PROTEIN 5.4 g/dl (6.1-8.1)
[2018-09-22] MEDS: INSULIN ASPART [NOVOLOG] 3 ML PEN SC ×4 (08:00→20:19)
[2018-09-22] MEDS: FAMOTIDINE 20 MG INJ IV ×2 (08:10→20:17)
[2018-09-22] MEDS: INSULIN GLARGINE [LANTus] (100 UNITS/ML) SYG SC (08:22)
[2018-09-22] MEDS: ONDANSETRON 4 MG INJ IV ×2 (13:10→20:47)
[2018-09-22 13:12] LABS: HEMOGLOBIN A1C 8.6 % (0-5.9)
[2018-09-22] MEDS: hydrALAzine 20 MG INJ IV (15:11)
[2018-09-22] MEDS: morphine 2 MG INJ IV (15:24)
[2018-09-22] MEDS: MAGNESIUM SULFATE 2 GM/50 ML 50 ML IVPB (16:38)
[2018-09-22] MEDS: ACETAMINOPHEN 325 MG TAB PO (22:50)
[2018-09-23] MEDS: PIPER-TAZO 3.375 GM IV (PMX) 100 ML IVPB ×5 (00:08→23:39)
[2018-09-23] MEDS: HYDROmorphONE 0.5 MG/0.5 ML SYG IV ×6 (00:51→21:44)
[2018-09-23] MEDS: ACCU-CHEK XX (02:00)
[2018-09-23 05:54] LABS: ADD MAN DIFF? NO
[2018-09-23 05:59] LABS: BASOPHILS % 0.2 % (0.0-2.0); EOSINOPHILS # 0.3 10^3/ul (0.0-0.5); EOSINOPHILS % 4.7 % (0.0-7.0); HEMATOCRIT 35.3 % (37.0-47.0); HEMOGLOBIN 11.4 g/dl (12.0-16.0); LYMPHOCYTES # 3.2 10^3/ul (0.8-2.9); LYMPHOCYTES % 51.7 % (15.0-51.0); MEAN CORPUSCULAR HEMOGLOBIN 25.9 pg (29.0-33.0); MEAN CORPUSCULAR HGB CONC 32.3 g/dl (32.0-37.0); MEAN CORPUSCULAR VOLUME 80.2 fl (82.0-101.0); MEAN PLATELET VOLUME 11.1 fl (7.4-10.4); MONOCYTE # 0.5 10^3/ul (0.3-0.9); MONOCYTES % 7.4 % (0.0-11.0); NEUTROPHIL # 2.2 10^3/ul (1.6-7.5); NEUTROPHILS % 35.7 % (39.0-77.0); PLATELET COUNT 182 10^3/UL (140-415)
[2018-09-23 05:59] LABS: WHITE BLOOD COUNT 6.2 10^3/ul (4.8-10.8)
[2018-09-23 06:31] LABS: PHOSPHORUS 3.7 mg/dl (2.5-4.9)
[2018-09-23 06:31] LABS: MAGNESIUM 1.8 mg/dl (1.7-2.5)
[2018-09-23 06:36] LABS: ANION GAP 5 (5-13); BLOOD UREA NITROGEN 11 mg/dl (7-20); CALCIUM 9.5 mg/dl (8.4-10.2); CARBON DIOXIDE 28 mmol/L (21-31); CHLORIDE 109 mmol/L (97-110); CREATININE 0.59 mg/dl (0.44-1.00); Estimated GFR > 60 mL/min (>60); GLUCOSE 180 mg/dl (70-220); SODIUM 142 mmol/L (135-144)
[2018-09-23] MEDS: DEXTROSE 5%-0.45% NACL 1,000 ML IV ×3 (06:37→20:50)
[2018-09-23] MEDS: INSULIN ASPART [NOVOLOG] 3 ML PEN SC ×4 (08:00→20:41)
[2018-09-23] MEDS: FAMOTIDINE 20 MG INJ IV ×2 (08:08→20:40)
[2018-09-23] MEDS: INSULIN GLARGINE [LANTus] (100 UNITS/ML) SYG SC (08:10)
[2018-09-23] MEDS: ONDANSETRON 4 MG INJ IV ×2 (08:55→21:43)
[2018-09-23] MEDS: DOCUSATE SODIUM 100 MG CAP PO ×2 (12:30→20:40)
[2018-09-23] MEDS: SENNA TAB PO ×2 (12:30→20:40)
[2018-09-23] MEDS ORDERED: NON-FORMULARY/PATIENT OWN MED (Varenicline Tartrate (Chantix) 1 MG) PO (13:00)
[2018-09-23] MEDS ORDERED: LEVOTHYROXINE 100 MCG TAB PO (13:00)
[2018-09-23] MEDS: RANITIDINE 150 MG TAB PO ×2 (13:00→14:23)
[2018-09-23] MEDS ORDERED: ALBUTEROL HFA 8 GM INHALER INH (13:00)
[2018-09-23] MEDS: FERROUS SULFATE (EC) 325 MG TAB PO (13:18)
[2018-09-23] MEDS: hydrALAzine 20 MG INJ IV ×2 (14:22→20:42)
[2018-09-23] MEDS: morphine 2 MG INJ IV (16:36)
[2018-09-23] MEDS: traMADol 50 MG TAB PO (20:40)
[2018-09-23] MEDS: ATORVASTATIN 40 MG TAB PO (20:40)
[2018-09-24] MEDS: ACCU-CHEK XX (01:42)
[2018-09-24] MEDS: HYDROmorphONE 0.5 MG/0.5 ML SYG IV ×4 (01:42→20:07)
[2018-09-24] MEDS: hydrALAzine 20 MG INJ IV (02:56)
[2018-09-24] MEDS: ALPRAZOLAM 0.5 MG TAB PO (04:34)
[2018-09-24] MEDS: PIPER-TAZO 3.375 GM IV (PMX) 100 ML IVPB ×3 (05:42→17:48)
[2018-09-24] MEDS: INSULIN ASPART [NOVOLOG] 3 ML PEN SC ×4 (08:24→21:00)
[2018-09-24] MEDS: INSULIN GLARGINE [LANTus] (100 UNITS/ML) SYG SC (08:25)
[2018-09-24] MEDS: FERROUS SULFATE (EC) 325 MG TAB PO (08:25)
[2018-09-24] MEDS: LEVOTHYROXINE 100 MCG TAB PO (08:25)
[2018-09-24] MEDS: FAMOTIDINE 20 MG INJ IV ×2 (08:26→20:07)
[2018-09-24] MEDS: ASCORBIC ACID 500 MG TAB PO (08:26)
[2018-09-24] MEDS: AMLODIPINE 5 MG TAB PO (08:26)
[2018-09-24] MEDS: ASPIRIN (EC) 81 MG TAB PO (08:26)
[2018-09-24] MEDS: SENNA TAB PO ×2 (08:27→20:07)
[2018-09-24] MEDS: DOCUSATE SODIUM 100 MG CAP PO (08:27)
[2018-09-24] MEDS: DEXTROSE 5%-0.45% NACL 1,000 ML IV (11:26)
[2018-09-24] MEDS: morphine 2 MG INJ IV (11:26)
[2018-09-24] MEDS: ONDANSETRON 4 MG INJ IV (11:33)
[2018-09-24] MEDS: traMADol 50 MG TAB PO ×2 (11:37→23:08)
[2018-09-24 13:26] LABS: ADD MAN DIFF? NO
[2018-09-24] MEDS: RANITIDINE 150 MG TAB PO (13:26)
[2018-09-24] MEDS: ALPRAZOLAM 1 MG TAB PO (13:26)
[2018-09-24] MEDS ORDERED: BENAZEPRIL 20 MG TAB PO (13:30)
[2018-09-24 13:33] LABS: WHITE BLOOD COUNT 7.5 10^3/ul (4.8-10.8)
[2018-09-24 13:33] LABS: BASOPHILS % 0.4 % (0.0-2.0); EOSINOPHILS # 0.3 10^3/ul (0.0-0.5); EOSINOPHILS % 3.7 % (0.0-7.0); HEMATOCRIT 38.1 % (37.0-47.0); HEMOGLOBIN 12.4 g/dl (12.0-16.0); LYMPHOCYTES # 2.6 10^3/ul (0.8-2.9); LYMPHOCYTES % 34.4 % (15.0-51.0); MEAN CORPUSCULAR HEMOGLOBIN 25.7 pg (29.0-33.0); MEAN CORPUSCULAR HGB CONC 32.5 g/dl (32.0-37.0); MEAN CORPUSCULAR VOLUME 78.9 fl (82.0-101.0); MEAN PLATELET VOLUME 10.9 fl (7.4-10.4); MONOCYTE # 0.7 10^3/ul (0.3-0.9); MONOCYTES % 9.3 % (0.0-11.0); NEUTROPHIL # 3.9 10^3/ul (1.6-7.5); NEUTROPHILS % 51.8 % (39.0-77.0); PLATELET COUNT 207 10^3/UL (140-415); RED BLOOD COUNT 4.83 10^6/ul (4.20-5.40); RED CELL DISTRIBUTION WIDTH 15.2 % (11.5-14.5)
[2018-09-24] MEDS: CYCLOBENZAPRINE 10 MG TAB PO (13:40)
[2018-09-24] MEDS: BENAZEPRIL 10 MG TAB PO (13:40)
[2018-09-24 13:51] LABS: ANION GAP 7 (5-13); BLOOD UREA NITROGEN 5 mg/dl (7-20); CALCIUM 10.1 mg/dl (8.4-10.2); CARBON DIOXIDE 26 mmol/L (21-31); CHLORIDE 108 mmol/L (97-110); CREATININE 0.46 mg/dl (0.44-1.00); Estimated GFR > 60 mL/min (>60); GLUCOSE 125 mg/dl (70-220); POTASSIUM 3.7 mmol/L (3.5-5.1); SODIUM 141 mmol/L (135-144)
[2018-09-24] MEDS ORDERED: CYCLOBENZAPRINE 10 MG TAB PO (15:00)
[2018-09-24] MEDS ORDERED: DOCUSATE SODIUM 100 MG CAP PO (15:00)
[2018-09-24] MEDS: ATORVASTATIN 40 MG TAB PO (20:07)
[2018-09-25] MEDS: PIPER-TAZO 3.375 GM IV (PMX) 100 ML IVPB ×4 (00:06→18:10)
[2018-09-25] MEDS: ACCU-CHEK XX (02:00)
[2018-09-25] MEDS: HYDROmorphONE 0.5 MG/0.5 ML SYG IV ×3 (04:55→21:03)
[2018-09-25 06:03] LABS: ADD MAN DIFF? NO
[2018-09-25] MEDS: LEVOTHYROXINE 100 MCG TAB PO (06:05)
[2018-09-25 06:08] LABS: WHITE BLOOD COUNT 7.3 10^3/ul (4.8-10.8)
[2018-09-25 06:08] LABS: BASOPHILS % 0.4 % (0.0-2.0); EOSINOPHILS # 0.3 10^3/ul (0.0-0.5); EOSINOPHILS % 4.3 % (0.0-7.0); HEMATOCRIT 37.8 % (37.0-47.0); HEMOGLOBIN 12.1 g/dl (12.0-16.0); LYMPHOCYTES # 3.5 10^3/ul (0.8-2.9); LYMPHOCYTES % 48.7 % (15.0-51.0); MEAN CORPUSCULAR HEMOGLOBIN 25.4 pg (29.0-33.0); MEAN CORPUSCULAR VOLUME 79.4 fl (82.0-101.0); MEAN PLATELET VOLUME 11.2 fl (7.4-10.4); MONOCYTE # 0.5 10^3/ul (0.3-0.9); MONOCYTES % 6.6 % (0.0-11.0); NEUTROPHIL # 2.9 10^3/ul (1.6-7.5); NEUTROPHILS % 39.6 % (39.0-77.0); PLATELET COUNT 210 10^3/UL (140-415); RED BLOOD COUNT 4.76 10^6/ul (4.20-5.40); RED CELL DISTRIBUTION WIDTH 15.4 % (11.5-14.5)
[2018-09-25 06:39] LABS: ALANINE AMINOTRANSFERASE 20 IU/L (13-69); ALBUMIN 3.1 g/dl (3.3-4.9); ALBUMIN/GLOBULIN RATIO 1.19; ALKALINE PHOSPHATASE 88 IU/L (42-121); ANION GAP 6 (5-13); ASPARTATE AMINO TRANSFERASE 19 IU/L (15-46); BILIRUBIN,INDIRECT 0.3 mg/dl (0-1.1); BILIRUBIN,TOTAL 0.3 mg/dl (0.2-1.3); BLOOD UREA NITROGEN 5 mg/dl (7-20); CALCIUM 9.8 mg/dl (8.4-10.2); CARBON DIOXIDE 29 mmol/L (21-31); CHLORIDE 107 mmol/L (97-110); CREATININE 0.53 mg/dl (0.44-1.00); Estimated GFR > 60 mL/min (>60); GLUCOSE 138 mg/dl (70-220); POTASSIUM 3.9 mmol/L (3.5-5.1); SODIUM 142 mmol/L (135-144); TOTAL PROTEIN 5.7 g/dl (6.1-8.1)
[2018-09-25 06:42] LABS: PHOSPHORUS 4.2 mg/dl (2.5-4.9)
[2018-09-25 06:42] LABS: MAGNESIUM 1.4 mg/dl (1.7-2.5)
[2018-09-25] MEDS: DEXTROSE 5%-0.45% NACL 1,000 ML IV ×2 (07:37→18:17)
[2018-09-25] MEDS: INSULIN ASPART [NOVOLOG] 3 ML PEN SC ×4 (08:00→20:59)
[2018-09-25] MEDS: IBUPROFEN 600 MG TAB PO ×2 (08:42→19:07)
[2018-09-25] MEDS: FERROUS SULFATE (EC) 325 MG TAB PO (08:42)
[2018-09-25] MEDS: BENAZEPRIL 10 MG TAB PO (08:44)
[2018-09-25] MEDS: SENNA TAB PO ×2 (08:45→21:00)
[2018-09-25] MEDS: ASCORBIC ACID 500 MG TAB PO (08:45)
[2018-09-25] MEDS: ASPIRIN (EC) 81 MG TAB PO (08:45)
[2018-09-25] MEDS: AMLODIPINE 5 MG TAB PO (08:45)
[2018-09-25] MEDS: FAMOTIDINE 20 MG INJ IV ×2 (09:43→21:01)
[2018-09-25] MEDS: INSULIN GLARGINE [LANTus] (100 UNITS/ML) SYG SC (09:52)
[2018-09-25] MEDS: MAGNESIUM SULFATE 3 GM in DEXTROSE 5% 100 ML IVPB (14:19)
[2018-09-25] MEDS: ATORVASTATIN 40 MG TAB PO (21:00)
[2018-09-26] MEDS: PIPER-TAZO 3.375 GM IV (PMX) 100 ML IVPB ×3 (00:05→12:39)
[2018-09-26] MEDS: ACCU-CHEK XX (02:00)
[2018-09-26] MEDS: DEXTROSE 5%-0.45% NACL 1,000 ML IV (03:37)
[2018-09-26] MEDS: HYDROmorphONE 0.5 MG/0.5 ML SYG IV (05:06)
[2018-09-26] MEDS: ONDANSETRON 4 MG INJ IV (05:14)
[2018-09-26 05:44] LABS: ADD MAN DIFF? NO
[2018-09-26 05:57] LABS: WHITE BLOOD COUNT 6.9 10^3/ul (4.8-10.8)
[2018-09-26 05:57] LABS: BASOPHILS % 0.4 % (0.0-2.0); EOSINOPHILS # 0.5 10^3/ul (0.0-0.5); HEMATOCRIT 37.1 % (37.0-47.0); HEMOGLOBIN 12.3 g/dl (12.0-16.0); LYMPHOCYTES # 3.5 10^3/ul (0.8-2.9); LYMPHOCYTES % 50.7 % (15.0-51.0); MEAN CORPUSCULAR HEMOGLOBIN 25.9 pg (29.0-33.0); MEAN CORPUSCULAR HGB CONC 33.2 g/dl (32.0-37.0); MEAN CORPUSCULAR VOLUME 78.3 fl (82.0-101.0); MEAN PLATELET VOLUME 11.1 fl (7.4-10.4); MONOCYTE # 0.5 10^3/ul (0.3-0.9); NEUTROPHIL # 2.4 10^3/ul (1.6-7.5); NEUTROPHILS % 34.6 % (39.0-77.0); PLATELET COUNT 190 10^3/UL (140-415); RED BLOOD COUNT 4.74 10^6/ul (4.20-5.40); RED CELL DISTRIBUTION WIDTH 15.1 % (11.5-14.5)
[2018-09-26 06:28] LABS: ANION GAP 6 (5-13); BLOOD UREA NITROGEN 6 mg/dl (7-20); CALCIUM 10.2 mg/dl (8.4-10.2); CARBON DIOXIDE 28 mmol/L (21-31); CHLORIDE 110 mmol/L (97-110); CREATININE 0.52 mg/dl (0.44-1.00); Estimated GFR > 60 mL/min (>60); GLUCOSE 101 mg/dl (70-220); POTASSIUM 4.1 mmol/L (3.5-5.1); SODIUM 144 mmol/L (135-144)
[2018-09-26 06:41] LABS: MAGNESIUM 1.7 mg/dl (1.7-2.5)
[2018-09-26 06:41] LABS: PHOSPHORUS 4.2 mg/dl (2.5-4.9)
[2018-09-26] MEDS: INSULIN ASPART [NOVOLOG] 3 ML PEN SC ×2 (08:00→12:52)
[2018-09-26] MEDS: ASCORBIC ACID 500 MG TAB PO (08:36)
[2018-09-26] MEDS: LEVOTHYROXINE 100 MCG TAB PO (08:36)
[2018-09-26] MEDS: AMLODIPINE 5 MG TAB PO (08:37)
[2018-09-26] MEDS: BENAZEPRIL 10 MG TAB PO (08:37)
[2018-09-26] MEDS: ASPIRIN (EC) 81 MG TAB PO (08:37)
[2018-09-26] MEDS: FERROUS SULFATE (EC) 325 MG TAB PO (08:37)
[2018-09-26] MEDS: SENNA TAB PO (08:38)
[2018-09-26] MEDS: INSULIN GLARGINE [LANTus] (100 UNITS/ML) SYG SC (08:41)
[2018-09-26] MEDS: IBUPROFEN 600 MG TAB PO (08:42)
[2018-09-26] MEDS: FAMOTIDINE 20 MG INJ IV (08:42)
[2018-09-26] MEDS ORDERED: DEXTROSE 5% 1,000 ML IV (10:00)
[2018-09-26] MEDS: traMADol 50 MG TAB PO (14:02)
== END 2018-09-26 16:34 | disposition still patient (30) | DRG 392 ==
LOC: E/R 21:28 → 2NE 09-21 02:58
DX: K57.32 Diverticulitis of large intestine without perforation or abscess without bleeding (principal); I10 Essential (primary) hypertension; J44.9 Chronic obstructive pulmonary disease, unspecified; E78.5 Hyperlipidemia, unspecified; E03.9 Hypothyroidism, unspecified; F17.200 Nicotine dependence, unspecified, uncomplicated; E11.65 Type 2 diabetes mellitus with hyperglycemia; E66.01 Morbid (severe) obesity due to excess calories; Z68.37 Body mass index [BMI] 37.0-37.9, adult; K44.9 Diaphragmatic hernia without obstruction or gangrene; K42.9 Umbilical hernia without obstruction or gangrene; Z86.73 Personal history of transient ischemic attack (TIA), and cerebral infarction without residual deficits
CPT/HCPCS: 36415; 74176; 80048; 80053; 81001; 82962; 83036; 83690; 83735; 84100; 85025; 87045; 87081; 87177; 96374; 96375; 97161; 99217; 99285-25

== ENCOUNTER 2018-10-21 05:25 | Inpatient (IN) | payer MEDICARE, OTHER ==
[2018-10-21] MEDS: SOD CHLORIDE 0.9% 500 ML IV (05:51)
[2018-10-21 05:56] LABS: ADD MAN DIFF? NO
[2018-10-21 06:03] LABS: BASOPHILS % 0.3 % (0.0-2.0); EOSINOPHILS # 0.2 10^3/ul (0.0-0.5); EOSINOPHILS % 1.3 % (0.0-7.0); HEMATOCRIT 40.6 % (37.0-47.0); LYMPHOCYTES # 4.8 10^3/ul (0.8-2.9); LYMPHOCYTES % 32.7 % (15.0-51.0); MEAN CORPUSCULAR HEMOGLOBIN 26.1 pg (29.0-33.0); MEAN CORPUSCULAR VOLUME 81.5 fl (82.0-101.0); MEAN PLATELET VOLUME 11.1 fl (7.4-10.4); MONOCYTE # 0.9 10^3/ul (0.3-0.9); NEUTROPHIL # 8.7 10^3/ul (1.6-7.5); PLATELET COUNT 202 10^3/UL (140-415); RED BLOOD COUNT 4.98 10^6/ul (4.20-5.40); RED CELL DISTRIBUTION WIDTH 15.7 % (11.5-14.5)
[2018-10-21 06:03] LABS: WHITE BLOOD COUNT 14.7 10^3/ul (4.8-10.8)
[2018-10-21] MEDS: HYDROmorphONE 0.5 MG/0.5 ML SYG IV ×2 (06:15→07:31)
[2018-10-21 06:21] LABS: ANION GAP 7 (5-13); BLOOD UREA NITROGEN 20 mg/dl (7-20); CALCIUM 9.5 mg/dl (8.4-10.2); CARBON DIOXIDE 27 mmol/L (21-31); CHLORIDE 104 mmol/L (97-110); CREATININE 0.69 mg/dl (0.44-1.00); Estimated GFR > 60 mL/min (>60); GLUCOSE 197 mg/dl (70-220); POTASSIUM 3.9 mmol/L (3.5-5.1); SODIUM 138 mmol/L (135-144)
[2018-10-21 06:33] LABS: TROPONIN-I < 0.012 ng/ml (0.000-0.120)
[2018-10-21 07:25] LABS: ALANINE AMINOTRANSFERASE 22 IU/L (13-69); ALBUMIN 2.2 g/dl (3.3-4.9); ALKALINE PHOSPHATASE 68 IU/L (42-121); ASPARTATE AMINO TRANSFERASE 18 IU/L (15-46); BILIRUBIN,INDIRECT 0.3 mg/dl (0-1.1); BILIRUBIN,TOTAL 0.3 mg/dl (0.2-1.3); TOTAL PROTEIN 4.3 g/dl (6.1-8.1)
[2018-10-21 07:46] LABS: LIPASE 96 U/L (23-300)
[2018-10-21] MEDS ORDERED: ACETAMINOPHEN 325 MG TAB PO ×2 (08:30→10:30)
[2018-10-21 08:32] LABS: ADD UMIC YES; UR ASCORBIC ACID NEGATIVE (NEGATIVE); UR BILIRUBIN (Dip) NEGATIVE (NEGATIVE); UR BLOOD (Dip) NEGATIVE (NEGATIVE); UR CLARITY CLEAR (CLEAR); UR COLOR YELLOW (YELLOW); UR GLUCOSE (Dip) NEGATIVE (NEGATIVE); UR KETONES (Dip) NEGATIVE (NEGATIVE); UR LEUKOCYTE ESTERASE (Dip) TRACE Leu/ul (NEGATIVE); UR NITRITE (Dip) NEGATIVE (NEGATIVE); UR RBC 1 /HPF (0-5); UR SPECIFIC GRAVITY (Dip) 1.015 (1.003-1.030); UR SQUAMOUS EPITHELIAL CELL FEW /HPF (FEW); UR TOTAL PROTEIN (Dip) NEGATIVE (NEGATIVE); UR UROBILINOGEN (Dip) NEGATIVE (NEGATIVE); UR WBC 2 /HPF (0-5)
[2018-10-21] MEDS: DOCUSATE SODIUM 100 MG CAP PO ×3 (09:30→20:34)
[2018-10-21] MEDS: KETOROLAC 15 MG INJ IV (10:24)
[2018-10-21] MEDS ORDERED: NACL 0.9% 3 ML SYG IV (10:30)
[2018-10-21] MEDS ORDERED: GLUCAGON 1 MG INJ IM (11:00)
[2018-10-21] MEDS ORDERED: DEXTROSE 50% 50 ML SYRINGE IV ×2 (11:00)
[2018-10-21] MEDS ORDERED: GLUCOSE GEL 15 GRAM TUBE BUCCAL (11:00)
[2018-10-21] MEDS ORDERED: GLUCOSE GEL 15 GRAM TUBE PO ×2 (11:00)
[2018-10-21] MEDS: RANITIDINE 150 MG TAB PO (11:19)
[2018-10-21] MEDS: LEVOTHYROXINE 100 MCG TAB PO (11:19)
[2018-10-21] MEDS: ASCORBIC ACID 500 MG TAB PO (11:19)
[2018-10-21] MEDS: FERROUS SULFATE (EC) 325 MG TAB PO (11:20)
[2018-10-21] MEDS: BENAZEPRIL 20 MG TAB PO (11:20)
[2018-10-21] MEDS: AMLODIPINE 5 MG TAB PO (11:21)
[2018-10-21] MEDS: LEVOFLOXACIN 750MG/D5W (PMX) 150 ML IVPB (11:27)
[2018-10-21] MEDS: SOD CHLORIDE 0.9% 1,000 ML IV ×2 (11:27→23:34)
[2018-10-21] MEDS: ASPIRIN 81 MG TAB PO (11:29)
[2018-10-21 11:57] LABS: CREATINE KINASE 47 IU/L (23-200)
[2018-10-21 12:10] LABS: CK INDEX 2.3; CK-MB 1.07 ng/ml (0.0-2.4); TROPONIN-I < 0.012 ng/ml (0.000-0.120)
[2018-10-21] MEDS: CYCLOBENZAPRINE 10 MG TAB PO ×2 (12:42→20:27)
[2018-10-21] MEDS: morphine 2 MG INJ IV (12:42)
[2018-10-21] MEDS: ONDANSETRON 4 MG INJ IV ×2 (12:42→21:35)
[2018-10-21] MEDS: INSULIN ASPART [NOVOLOG] 3 ML PEN SC ×3 (12:45→23:23)
[2018-10-21] MEDS: NICOTINE (14 MG/24 HR) PATCH TRANSDERM (15:30)
[2018-10-21] MEDS: HYDROmorphONE 1 MG/ML SYG IV ×2 (17:05→21:32)
[2018-10-21 20:14] LABS: CREATINE KINASE 45 IU/L (23-200)
[2018-10-21 20:25] LABS: CK INDEX 1.8; CK-MB 0.81 ng/ml (0.0-2.4); TROPONIN-I < 0.012 ng/ml (0.000-0.120)
[2018-10-21] MEDS: ATORVASTATIN 40 MG TAB PO (20:27)
[2018-10-21] MEDS: INSULIN GLARGINE [LANTus] (100 UNITS/ML) SYG SC (23:24)
[2018-10-22] MEDS: KETOROLAC 15 MG INJ IV ×2 (00:25→06:09)
[2018-10-22] MEDS: HYDROmorphONE 1 MG/ML SYG IV ×6 (01:21→21:25)
[2018-10-22] MEDS: ACCU-CHEK XX (01:24)
[2018-10-22] MEDS: SOD CHLORIDE 0.9% 1,000 ML IV ×2 (04:10→21:30)
[2018-10-22] MEDS: ONDANSETRON 4 MG INJ IV ×4 (04:37→23:57)
[2018-10-22 06:00] LABS: ADD MAN DIFF? NO
[2018-10-22] MEDS: LEVOTHYROXINE 100 MCG TAB PO (06:09)
[2018-10-22 06:12] LABS: BASOPHILS % 0.4 % (0.0-2.0); EOSINOPHILS # 0.2 10^3/ul (0.0-0.5); EOSINOPHILS % 2.3 % (0.0-7.0); HEMATOCRIT 36.3 % (37.0-47.0); HEMOGLOBIN 11.5 g/dl (12.0-16.0); LYMPHOCYTES # 4.2 10^3/ul (0.8-2.9); LYMPHOCYTES % 54.3 % (15.0-51.0); MEAN CORPUSCULAR HEMOGLOBIN 26.4 pg (29.0-33.0); MEAN CORPUSCULAR HGB CONC 31.7 g/dl (32.0-37.0); MEAN CORPUSCULAR VOLUME 83.3 fl (82.0-101.0); MEAN PLATELET VOLUME 11.4 fl (7.4-10.4); MONOCYTE # 0.5 10^3/ul (0.3-0.9); NEUTROPHIL # 2.7 10^3/ul (1.6-7.5); NEUTROPHILS % 35.2 % (39.0-77.0); PLATELET COUNT 178 10^3/UL (140-415); RED BLOOD COUNT 4.36 10^6/ul (4.20-5.40)
[2018-10-22 06:12] LABS: WHITE BLOOD COUNT 7.7 10^3/ul (4.8-10.8)
[2018-10-22 06:35] LABS: HEMOGLOBIN A1C 8.4 % (0-5.9)
[2018-10-22 07:04] LABS: ALANINE AMINOTRANSFERASE 13 IU/L (13-69); ALBUMIN 3.1 g/dl (3.3-4.9); ALBUMIN/GLOBULIN RATIO 1.29; ALKALINE PHOSPHATASE 83 IU/L (42-121); ANION GAP 6 (5-13); ASPARTATE AMINO TRANSFERASE 16 IU/L (15-46); BILIRUBIN,INDIRECT 0.5 mg/dl (0-1.1); BILIRUBIN,TOTAL 0.5 mg/dl (0.2-1.3); BLOOD UREA NITROGEN 21 mg/dl (7-20); CALCIUM 9.3 mg/dl (8.4-10.2); CARBON DIOXIDE 30 mmol/L (21-31); CHLORIDE 105 mmol/L (97-110); CHOL/HDL RATIO 3.4 RATIO; CHOLESTEROL 136 mg/dl (100-200); CREATININE 0.82 mg/dl (0.44-1.00); Estimated GFR > 60 mL/min (>60); GLUCOSE 233 mg/dl (70-220); HDL CHOLESTEROL 39 mg/dl (33-92); LDL CHOLESTEROL,CALCULATED 67 mg/dl; MAGNESIUM 1.5 mg/dl (1.7-2.5); PHOSPHORUS 4.2 mg/dl (2.5-4.9); POTASSIUM 4.5 mmol/L (3.5-5.1); SODIUM 141 mmol/L (135-144); TOTAL PROTEIN 5.5 g/dl (6.1-8.1); TRIGLYCERIDES 149 mg/dl (0-149)
[2018-10-22] MEDS: RANITIDINE 150 MG TAB PO (08:11)
[2018-10-22] MEDS: NICOTINE (14 MG/24 HR) PATCH TRANSDERM (08:11)
[2018-10-22] MEDS: AMLODIPINE 5 MG TAB PO (08:12)
[2018-10-22] MEDS: CYCLOBENZAPRINE 10 MG TAB PO ×3 (08:12→20:24)
[2018-10-22] MEDS: ASPIRIN (EC) 81 MG TAB PO (08:12)
[2018-10-22] MEDS: FERROUS SULFATE (EC) 325 MG TAB PO (08:12)
[2018-10-22] MEDS: ASCORBIC ACID 500 MG TAB PO (08:12)
[2018-10-22] MEDS: BENAZEPRIL 20 MG TAB PO (08:13)
[2018-10-22] MEDS: INSULIN ASPART [NOVOLOG] 3 ML PEN SC ×4 (08:19→20:45)
[2018-10-22] MEDS: ASPIRIN 81 MG TAB PO (08:19)
[2018-10-22] MEDS: DOCUSATE SODIUM 100 MG CAP PO ×2 (09:08→20:35)
[2018-10-22] MEDS: LEVOFLOXACIN 750MG/D5W (PMX) 150 ML IVPB (10:47)
[2018-10-22] MEDS: MAGNESIUM SULFATE 2 GM/50 ML 50 ML IVPB (12:16)
[2018-10-22] MEDS: DIPHENHYDRAMINE 25 MG CAP PO ×2 (12:19→19:34)
[2018-10-22] MEDS: ATORVASTATIN 40 MG TAB PO (20:24)
[2018-10-22] MEDS: INSULIN GLARGINE [LANTus] (100 UNITS/ML) SYG SC (20:45)
[2018-10-23] MEDS: DIPHENHYDRAMINE 25 MG CAP PO ×3 (01:22→20:21)
[2018-10-23] MEDS: DOCUSATE SODIUM 100 MG CAP PO ×3 (01:23→20:20)
[2018-10-23] MEDS: HYDROmorphONE 1 MG/ML SYG IV ×6 (01:23→23:46)
[2018-10-23] MEDS: ACCU-CHEK XX (01:50)
[2018-10-23] MEDS: morphine 4 MG/ML VIAL IV (04:12)
[2018-10-23] MEDS: hydrALAzine 20 MG INJ IV (04:50)
[2018-10-23] MEDS: ONDANSETRON 4 MG INJ IV (06:01)
[2018-10-23] MEDS: LEVOTHYROXINE 100 MCG TAB PO (06:01)
[2018-10-23 06:25] LABS: ADD MAN DIFF? NO
[2018-10-23 06:37] LABS: WHITE BLOOD COUNT 7.7 10^3/ul (4.8-10.8)
[2018-10-23 06:37] LABS: BASOPHILS % 0.4 % (0.0-2.0); EOSINOPHILS # 0.3 10^3/ul (0.0-0.5); EOSINOPHILS % 3.3 % (0.0-7.0); HEMATOCRIT 36.6 % (37.0-47.0); HEMOGLOBIN 11.8 g/dl (12.0-16.0); LYMPHOCYTES # 3.8 10^3/ul (0.8-2.9); LYMPHOCYTES % 49.8 % (15.0-51.0); MEAN CORPUSCULAR HEMOGLOBIN 26.6 pg (29.0-33.0); MEAN CORPUSCULAR HGB CONC 32.2 g/dl (32.0-37.0); MEAN CORPUSCULAR VOLUME 82.4 fl (82.0-101.0); MEAN PLATELET VOLUME 11.2 fl (7.4-10.4); MONOCYTE # 0.6 10^3/ul (0.3-0.9); MONOCYTES % 7.7 % (0.0-11.0); NEUTROPHIL # 2.9 10^3/ul (1.6-7.5); NEUTROPHILS % 38.1 % (39.0-77.0); PLATELET COUNT 179 10^3/UL (140-415); RED BLOOD COUNT 4.44 10^6/ul (4.20-5.40); RED CELL DISTRIBUTION WIDTH 15.3 % (11.5-14.5)
[2018-10-23 07:32] LABS: ALANINE AMINOTRANSFERASE 21 IU/L (13-69); ALBUMIN 3.2 g/dl (3.3-4.9); ALBUMIN/GLOBULIN RATIO 1.14; ALKALINE PHOSPHATASE 109 IU/L (42-121); ANION GAP 4 (5-13); ASPARTATE AMINO TRANSFERASE 20 IU/L (15-46); BILIRUBIN,INDIRECT 0.3 mg/dl (0-1.1); BILIRUBIN,TOTAL 0.3 mg/dl (0.2-1.3); BLOOD UREA NITROGEN 15 mg/dl (7-20); CALCIUM 9.5 mg/dl (8.4-10.2); CARBON DIOXIDE 29 mmol/L (21-31); CHLORIDE 106 mmol/L (97-110); CREATININE 0.55 mg/dl (0.44-1.00); Estimated GFR > 60 mL/min (>60); GLUCOSE 166 mg/dl (70-220); POTASSIUM 4.1 mmol/L (3.5-5.1); SODIUM 139 mmol/L (135-144)
[2018-10-23 07:35] LABS: MAGNESIUM 1.5 mg/dl (1.7-2.5)
[2018-10-23] MEDS: INSULIN ASPART [NOVOLOG] 3 ML PEN SC ×4 (07:53→20:18)
[2018-10-23] MEDS: FERROUS SULFATE (EC) 325 MG TAB PO ×2 (08:55→09:00)
[2018-10-23] MEDS: RANITIDINE 150 MG TAB PO (08:55)
[2018-10-23] MEDS: ASPIRIN 81 MG TAB PO (08:55)
[2018-10-23] MEDS: ASCORBIC ACID 500 MG TAB PO (08:55)
[2018-10-23] MEDS: ASPIRIN (EC) 81 MG TAB PO (08:56)
[2018-10-23] MEDS: BENAZEPRIL 20 MG TAB PO (08:56)
[2018-10-23] MEDS: NICOTINE (14 MG/24 HR) PATCH TRANSDERM (08:57)
[2018-10-23] MEDS: CYCLOBENZAPRINE 10 MG TAB PO ×3 (08:57→20:19)
[2018-10-23] MEDS: AMLODIPINE 5 MG TAB PO (08:57)
[2018-10-23] MEDS: ENOXAPARIN 40 MG/0.4 ML SYG SC (09:26)
[2018-10-23] MEDS: LEVOFLOXACIN 750MG/D5W (PMX) 150 ML IVPB (10:16)
[2018-10-23] MEDS: CEFTRIAXONE 1 GM/50 ML (PMX) 50 ML IVPB (10:33)
[2018-10-23] MEDS: LACTULOSE 30ML CUP PO ×3 (14:50→20:19)
[2018-10-23] MEDS: ATORVASTATIN 40 MG TAB PO (20:20)
[2018-10-23] MEDS: INSULIN GLARGINE [LANTus] (100 UNITS/ML) SYG SC (20:23)
[2018-10-24] MEDS: LACTULOSE 30ML CUP PO ×6 (00:05→20:43)
[2018-10-24] MEDS: ACCU-CHEK XX (02:00)
[2018-10-24] MEDS: HYDROmorphONE 1 MG/ML SYG IV ×5 (04:05→21:47)
[2018-10-24 06:01] LABS: ADD MAN DIFF? NO
[2018-10-24] MEDS: LEVOTHYROXINE 100 MCG TAB PO (06:04)
[2018-10-24 06:10] LABS: WHITE BLOOD COUNT 7.2 10^3/ul (4.8-10.8)
[2018-10-24 06:10] LABS: BASOPHILS % 0.4 % (0.0-2.0); EOSINOPHILS # 0.3 10^3/ul (0.0-0.5); EOSINOPHILS % 3.6 % (0.0-7.0); HEMATOCRIT 36.8 % (37.0-47.0); HEMOGLOBIN 11.9 g/dl (12.0-16.0); LYMPHOCYTES # 3.5 10^3/ul (0.8-2.9); LYMPHOCYTES % 49.4 % (15.0-51.0); MEAN CORPUSCULAR HEMOGLOBIN 26.3 pg (29.0-33.0); MEAN CORPUSCULAR HGB CONC 32.3 g/dl (32.0-37.0); MEAN CORPUSCULAR VOLUME 81.4 fl (82.0-101.0); MEAN PLATELET VOLUME 11.5 fl (7.4-10.4); MONOCYTE # 0.6 10^3/ul (0.3-0.9); MONOCYTES % 8.2 % (0.0-11.0); NEUTROPHIL # 2.7 10^3/ul (1.6-7.5); PLATELET COUNT 216 10^3/UL (140-415); RED BLOOD COUNT 4.52 10^6/ul (4.20-5.40); RED CELL DISTRIBUTION WIDTH 15.7 % (11.5-14.5)
[2018-10-24 06:38] LABS: PHOSPHORUS 4.2 mg/dl (2.5-4.9)
[2018-10-24 06:38] LABS: MAGNESIUM 1.4 mg/dl (1.7-2.5)
[2018-10-24 06:50] LABS: ANION GAP 5 (5-13); BLOOD UREA NITROGEN 12 mg/dl (7-20); CALCIUM 9.6 mg/dl (8.4-10.2); CARBON DIOXIDE 29 mmol/L (21-31); CHLORIDE 106 mmol/L (97-110); CREATININE 0.52 mg/dl (0.44-1.00); Estimated GFR > 60 mL/min (>60); GLUCOSE 100 mg/dl (70-220); POTASSIUM 4.1 mmol/L (3.5-5.1); SODIUM 140 mmol/L (135-144)
[2018-10-24] MEDS: INSULIN ASPART [NOVOLOG] 3 ML PEN SC ×4 (08:00→20:42)
[2018-10-24] MEDS: ONDANSETRON 4 MG INJ IV ×2 (08:06→21:53)
[2018-10-24] MEDS: ENOXAPARIN 40 MG/0.4 ML SYG SC (08:09)
[2018-10-24] MEDS: NICOTINE (14 MG/24 HR) PATCH TRANSDERM (08:10)
[2018-10-24] MEDS: FERROUS SULFATE (EC) 325 MG TAB PO (08:12)
[2018-10-24] MEDS: CYCLOBENZAPRINE 10 MG TAB PO ×3 (08:12→20:40)
[2018-10-24] MEDS: RANITIDINE 150 MG TAB PO (08:13)
[2018-10-24] MEDS: ASCORBIC ACID 500 MG TAB PO (08:13)
[2018-10-24] MEDS: AMLODIPINE 5 MG TAB PO (08:14)
[2018-10-24] MEDS: BENAZEPRIL 20 MG TAB PO (08:14)
[2018-10-24] MEDS: ASPIRIN 81 MG TAB PO (08:16)
[2018-10-24] MEDS: DOCUSATE SODIUM 100 MG CAP PO ×2 (08:19→20:42)
[2018-10-24] MEDS: ASPIRIN (EC) 81 MG TAB PO (08:20)
[2018-10-24] MEDS: DIPHENHYDRAMINE 25 MG CAP PO (08:36)
[2018-10-24] MEDS: CEFTRIAXONE 1 GM/50 ML (PMX) 50 ML IVPB (11:24)
[2018-10-24] MEDS: MAGNESIUM SULFATE 3 GM in DEXTROSE 5% 100 ML IVPB (17:18)
[2018-10-24] MEDS: INSULIN GLARGINE [LANTus] (100 UNITS/ML) SYG SC (20:39)
[2018-10-24] MEDS: ATORVASTATIN 40 MG TAB PO (20:40)
[2018-10-25] MEDS: LACTULOSE 30ML CUP PO ×7 (01:00→22:09)
[2018-10-25] MEDS: HYDROmorphONE 1 MG/ML SYG IV ×5 (01:53→23:16)
[2018-10-25] MEDS: ACCU-CHEK XX (02:00)
[2018-10-25] MEDS: LEVOTHYROXINE 100 MCG TAB PO (05:10)
[2018-10-25] MEDS: INSULIN ASPART [NOVOLOG] 3 ML PEN SC ×4 (05:30→22:13)
[2018-10-25 08:37] LABS: ADD MAN DIFF? NO
[2018-10-25 08:44] LABS: BASOPHILS % 0.5 % (0.0-2.0); EOSINOPHILS # 0.2 10^3/ul (0.0-0.5); EOSINOPHILS % 3.7 % (0.0-7.0); HEMATOCRIT 36.4 % (37.0-47.0); HEMOGLOBIN 11.8 g/dl (12.0-16.0); MEAN CORPUSCULAR HEMOGLOBIN 26.5 pg (29.0-33.0); MEAN CORPUSCULAR HGB CONC 32.4 g/dl (32.0-37.0); MEAN CORPUSCULAR VOLUME 81.6 fl (82.0-101.0); MEAN PLATELET VOLUME 10.5 fl (7.4-10.4); MONOCYTE # 0.6 10^3/ul (0.3-0.9); MONOCYTES % 9.3 % (0.0-11.0); NEUTROPHIL # 2.3 10^3/ul (1.6-7.5); PLATELET COUNT 192 10^3/UL (140-415); RED BLOOD COUNT 4.46 10^6/ul (4.20-5.40); RED CELL DISTRIBUTION WIDTH 15.4 % (11.5-14.5)
[2018-10-25 08:44] LABS: WHITE BLOOD COUNT 6.1 10^3/ul (4.8-10.8)
[2018-10-25] MEDS: RANITIDINE 150 MG TAB PO (09:00)
[2018-10-25] MEDS: BENAZEPRIL 20 MG TAB PO (09:00)
[2018-10-25] MEDS: AMLODIPINE 5 MG TAB PO (09:00)
[2018-10-25] MEDS: ASPIRIN (EC) 81 MG TAB PO (09:00)
[2018-10-25] MEDS: FERROUS SULFATE (EC) 325 MG TAB PO (09:00)
[2018-10-25] MEDS: ASCORBIC ACID 500 MG TAB PO (09:00)
[2018-10-25] MEDS: ASPIRIN 81 MG TAB PO (09:00)
[2018-10-25] MEDS: CYCLOBENZAPRINE 10 MG TAB PO ×3 (09:00→22:15)
[2018-10-25 09:03] LABS: MAGNESIUM 1.5 mg/dl (1.7-2.5)
[2018-10-25] MEDS: NICOTINE (14 MG/24 HR) PATCH TRANSDERM (09:08)
[2018-10-25 09:15] LABS: ANION GAP 3 (5-13); BLOOD UREA NITROGEN 8 mg/dl (7-20); CALCIUM 9.6 mg/dl (8.4-10.2); CARBON DIOXIDE 29 mmol/L (21-31); CHLORIDE 107 mmol/L (97-110); CREATININE 0.56 mg/dl (0.44-1.00); Estimated GFR > 60 mL/min (>60); GLUCOSE 86 mg/dl (70-220); POTASSIUM 3.7 mmol/L (3.5-5.1); SODIUM 139 mmol/L (135-144)
[2018-10-25] MEDS: DOCUSATE SODIUM 100 MG CAP PO ×3 (09:18→22:15)
[2018-10-25] MEDS: CEFTRIAXONE 1 GM/50 ML (PMX) 50 ML IVPB (11:12)
[2018-10-25] MEDS ORDERED: LABETALOL HCL 20MG INJ IV (17:00)
[2018-10-25] MEDS ORDERED: ONDANSETRON 4 MG INJ IV (17:00)
[2018-10-25] MEDS ORDERED: EPHEDrine 25 MG/5 ML SYG IV (17:00)
[2018-10-25] MEDS ORDERED: FENTAnyl 50 MCG/ML VIAL IV ×3 (17:00)
[2018-10-25] MEDS ORDERED: MIDAZOLAM 1 MG/ML 2 ML INJ IV (17:00)
[2018-10-25] MEDS ORDERED: MEPERIDINE 25 MG INJ IV (17:00)
[2018-10-25] MEDS ORDERED: METOCLOPRAMIDE 10 MG INJ IV (17:00)
[2018-10-25] MEDS ORDERED: DIPHENHYDRAMINE 50 MG INJ IV (17:00)
[2018-10-25] MEDS: INSULIN GLARGINE [LANTus] (100 UNITS/ML) SYG SC (22:14)
[2018-10-25] MEDS: ATORVASTATIN 40 MG TAB PO (22:15)
[2018-10-25] MEDS: LOPERAMIDE 2 MG CAP PO (22:38)
[2018-10-25] MEDS: hydrALAzine 20 MG INJ IV (22:39)
[2018-10-25] MEDS: ONDANSETRON 4 MG INJ IV (23:21)
[2018-10-26] MEDS: LACTULOSE 30ML CUP PO ×5 (00:35→16:18)
[2018-10-26] MEDS ORDERED: ACCU-CHEK XX (02:00)
[2018-10-26] MEDS: ACCU-CHEK XX (02:06)
[2018-10-26] MEDS: HYDROmorphONE 1 MG/ML SYG IV ×4 (03:42→16:17)
[2018-10-26] MEDS: LEVOTHYROXINE 100 MCG TAB PO (06:08)
[2018-10-26 06:23] LABS: ADD MAN DIFF? NO
[2018-10-26 06:30] LABS: WHITE BLOOD COUNT 7.4 10^3/ul (4.8-10.8)
[2018-10-26 06:30] LABS: BASOPHILS % 0.4 % (0.0-2.0); EOSINOPHILS # 0.3 10^3/ul (0.0-0.5); EOSINOPHILS % 4.1 % (0.0-7.0); HEMATOCRIT 35.9 % (37.0-47.0); HEMOGLOBIN 11.8 g/dl (12.0-16.0); LYMPHOCYTES # 2.9 10^3/ul (0.8-2.9); LYMPHOCYTES % 39.7 % (15.0-51.0); MEAN CORPUSCULAR HEMOGLOBIN 26.3 pg (29.0-33.0); MEAN CORPUSCULAR HGB CONC 32.9 g/dl (32.0-37.0); MEAN CORPUSCULAR VOLUME 80.1 fl (82.0-101.0); MEAN PLATELET VOLUME 11.5 fl (7.4-10.4); MONOCYTE # 0.6 10^3/ul (0.3-0.9); MONOCYTES % 7.6 % (0.0-11.0); NEUTROPHIL # 3.5 10^3/ul (1.6-7.5); NEUTROPHILS % 47.9 % (39.0-77.0); PLATELET COUNT 205 10^3/UL (140-415); RED BLOOD COUNT 4.48 10^6/ul (4.20-5.40); RED CELL DISTRIBUTION WIDTH 15.6 % (11.5-14.5)
[2018-10-26 07:06] LABS: ANION GAP 5 (5-13); BLOOD UREA NITROGEN 11 mg/dl (7-20); CALCIUM 9.3 mg/dl (8.4-10.2); CARBON DIOXIDE 30 mmol/L (21-31); CHLORIDE 106 mmol/L (97-110); CREATININE 0.54 mg/dl (0.44-1.00); Estimated GFR > 60 mL/min (>60); GLUCOSE 162 mg/dl (70-220); POTASSIUM 4.2 mmol/L (3.5-5.1); SODIUM 141 mmol/L (135-144)
[2018-10-26 07:11] LABS: PHOSPHORUS 3.8 mg/dl (2.5-4.9)
[2018-10-26 07:11] LABS: MAGNESIUM 1.6 mg/dl (1.7-2.5)
[2018-10-26] MEDS: INSULIN ASPART [NOVOLOG] 3 ML PEN SC ×2 (08:10→12:00)
[2018-10-26] MEDS: RANITIDINE 150 MG TAB PO (08:11)
[2018-10-26] MEDS: ASPIRIN 81 MG TAB PO (08:11)
[2018-10-26] MEDS: CYCLOBENZAPRINE 10 MG TAB PO ×2 (08:11→12:07)
[2018-10-26] MEDS: FERROUS SULFATE (EC) 325 MG TAB PO (08:11)
[2018-10-26] MEDS: NICOTINE (14 MG/24 HR) PATCH TRANSDERM (08:11)
[2018-10-26] MEDS: ASCORBIC ACID 500 MG TAB PO (08:11)
[2018-10-26] MEDS: AMLODIPINE 5 MG TAB PO (08:13)
[2018-10-26] MEDS: BENAZEPRIL 20 MG TAB PO (08:13)
[2018-10-26] MEDS: PROPOFOL 40 ML (08:27)
[2018-10-26] MEDS: ENOXAPARIN 40 MG/0.4 ML SYG SC (08:27)
[2018-10-26] MEDS: ASPIRIN (EC) 81 MG TAB PO (08:28)
[2018-10-26] MEDS: DOCUSATE SODIUM 100 MG CAP PO (08:29)
[2018-10-26] MEDS: CEFTRIAXONE 1 GM/50 ML (PMX) 50 ML IVPB (12:08)
[2018-10-26] MEDS: MAGNESIUM CHLORIDE (SR) 64 MG TAB PO (15:55)
== END 2018-10-26 17:52 | disposition home or self-care (01) | DRG 392 ==
LOC: E/R 05:25 → PP2 10-23 10:55 → TEL 08:06
PROVIDERS: Internal Medicine
PROC: 0DJD8ZZ Inspection of Lower Intestinal Tract, Via Natural or Artificial Opening Endoscopic (ICD-10-PCS; principal; 2018-10-25 15:25)
PROC: 0DB68ZX Excision of Stomach, Via Natural or Artificial Opening Endoscopic, Diagnostic (ICD-10-PCS; 2018-10-25 15:25)
DX: R10.32 Left lower quadrant pain (principal); R55 Syncope and collapse; K57.90 Diverticulosis of intestine, part unspecified, without perforation or abscess without bleeding; R42 Dizziness and giddiness; E78.5 Hyperlipidemia, unspecified; E03.9 Hypothyroidism, unspecified; E66.01 Morbid (severe) obesity due to excess calories; Z68.35 Body mass index [BMI] 35.0-35.9, adult; F32.9 Major depressive disorder, single episode, unspecified; Z90.49 Acquired absence of other specified parts of digestive tract; E11.40 Type 2 diabetes mellitus with diabetic neuropathy, unspecified; J44.9 Chronic obstructive pulmonary disease, unspecified; K29.70 Gastritis, unspecified, without bleeding; Z72.0 Tobacco use
CPT/HCPCS: 36415; 70450; 74176; 80048; 80053; 80061; 80076; 81001; 82550; 82553; 82962; 83036; 83690; 83735; 84100; 84484; 85025; 86674; 87040-91; 87045; 87086; 88305; 88312; 93005; 93306; 93880; 96374; 96376; 99285-25; G0378

== ENCOUNTER 2018-12-14 18:02 | Emergency (ER) | payer MEDICARE, OTHER ==
[2018-12-14] MEDS: SOD CHLORIDE 0.9% 500 ML IV (20:13)
[2018-12-14] MEDS: ONDANSETRON 4 MG INJ IV (20:15)
[2018-12-14] MEDS: morphine 4 MG/ML VIAL IV (20:15)
[2018-12-14 20:23] LABS: ADD MAN DIFF? NO
[2018-12-14 20:24] LABS: WHITE BLOOD COUNT 10.3 10^3/ul (4.8-10.8)
[2018-12-14 20:24] LABS: BASOPHIL # 0.1 10^3/ul (0.0-0.1); BASOPHILS % 0.5 % (0.0-2.0); EOSINOPHILS # 0.2 10^3/ul (0.0-0.5); EOSINOPHILS % 1.5 % (0.0-7.0); HEMATOCRIT 45.3 % (37.0-47.0); HEMOGLOBIN 14.6 g/dl (12.0-16.0); LYMPHOCYTES % 48.2 % (15.0-51.0); MEAN CORPUSCULAR HEMOGLOBIN 26.6 pg (29.0-33.0); MEAN CORPUSCULAR HGB CONC 32.2 g/dl (32.0-37.0); MEAN CORPUSCULAR VOLUME 82.7 fl (82.0-101.0); MONOCYTE # 0.8 10^3/ul (0.3-0.9); MONOCYTES % 7.7 % (0.0-11.0); NEUTROPHIL # 4.2 10^3/ul (1.6-7.5); NEUTROPHILS % 40.8 % (39.0-77.0); PLATELET COUNT 256 10^3/UL (140-415); RED BLOOD COUNT 5.48 10^6/ul (4.20-5.40); RED CELL DISTRIBUTION WIDTH 15.1 % (11.5-14.5)
[2018-12-14 20:29] LABS: ALANINE AMINOTRANSFERASE 19 IU/L (13-69); ALBUMIN 3.9 g/dl (3.3-4.9); ALBUMIN/GLOBULIN RATIO 1.11; ALKALINE PHOSPHATASE 122 IU/L (42-121); ANION GAP 8 (5-13); ASPARTATE AMINO TRANSFERASE 31 IU/L (15-46); BILIRUBIN,INDIRECT 0.4 mg/dl (0-1.1); BILIRUBIN,TOTAL 0.4 mg/dl (0.2-1.3); BLOOD UREA NITROGEN 23 mg/dl (7-20); CALCIUM 9.8 mg/dl (8.4-10.2); CARBON DIOXIDE 29 mmol/L (21-31); CHLORIDE 106 mmol/L (97-110); CREATININE 0.69 mg/dl (0.44-1.00); Estimated GFR > 60 mL/min (>60); GLUCOSE 68 mg/dl (70-220); LIPASE 124 U/L (23-300); POTASSIUM 4.6 mmol/L (3.5-5.1); SODIUM 143 mmol/L (135-144); TOTAL PROTEIN 7.4 g/dl (6.1-8.1)
[2018-12-14 21:02] LABS: ADD UMIC YES; UR ASCORBIC ACID NEGATIVE (NEGATIVE); UR BILIRUBIN (Dip) NEGATIVE (NEGATIVE); UR BLOOD (Dip) 1+ mg/dL (NEGATIVE); UR CLARITY CLEAR (CLEAR); UR COLOR YELLOW (YELLOW); UR GLUCOSE (Dip) NEGATIVE (NEGATIVE); UR KETONES (Dip) NEGATIVE (NEGATIVE); UR LEUKOCYTE ESTERASE (Dip) NEGATIVE Leu/ul (NEGATIVE); UR NITRITE (Dip) NEGATIVE (NEGATIVE); UR RBC 9 /HPF (0-5); UR SPECIFIC GRAVITY (Dip) 1.012 (1.003-1.030); UR TOTAL PROTEIN (Dip) NEGATIVE (NEGATIVE); UR UROBILINOGEN (Dip) NEGATIVE (NEGATIVE); UR WBC 1 /HPF (0-5)
[2018-12-14] MEDS: KETOROLAC 15 MG INJ IV (21:14)
== END 2018-12-14 21:36 | disposition home or self-care (01) ==
LOC: E/R 18:02
DX: K29.00 Acute gastritis without bleeding (principal); J44.9 Chronic obstructive pulmonary disease, unspecified; I10 Essential (primary) hypertension; I50.9 Heart failure, unspecified; E11.9 Type 2 diabetes mellitus without complications; E03.9 Hypothyroidism, unspecified; E66.01 Morbid (severe) obesity due to excess calories; F17.210 Nicotine dependence, cigarettes, uncomplicated; Z79.4 Long term (current) use of insulin; Z79.82 Long term (current) use of aspirin
CPT/HCPCS: 36415; 80053; 81001; 83690; 85025; 96374; 96375; 99284-25

== ENCOUNTER 2019-02-09 21:33 | Emergency (ER) | payer MEDICARE, OTHER ==
[2019-02-09] MEDS: morphine 10 MG INJ IV (22:31)
[2019-02-09 22:48] LABS: ADD MAN DIFF? NO
[2019-02-09 22:53] LABS: WHITE BLOOD COUNT 8.9 10^3/ul (4.8-10.8)
[2019-02-09 22:53] LABS: BASOPHILS % 0.5 % (0.0-2.0); EOSINOPHILS # 0.2 10^3/ul (0.0-0.5); EOSINOPHILS % 1.8 % (0.0-7.0); HEMATOCRIT 46.4 % (37.0-47.0); HEMOGLOBIN 14.7 g/dl (12.0-16.0); LYMPHOCYTES # 3.6 10^3/ul (0.8-2.9); LYMPHOCYTES % 40.6 % (15.0-51.0); MEAN CORPUSCULAR HEMOGLOBIN 26.7 pg (29.0-33.0); MEAN CORPUSCULAR HGB CONC 31.7 g/dl (32.0-37.0); MEAN CORPUSCULAR VOLUME 84.4 fl (82.0-101.0); MEAN PLATELET VOLUME 11.5 fl (7.4-10.4); MONOCYTE # 0.5 10^3/ul (0.3-0.9); MONOCYTES % 5.6 % (0.0-11.0); NEUTROPHIL # 4.4 10^3/ul (1.6-7.5); PLATELET COUNT 225 10^3/UL (140-415); RED CELL DISTRIBUTION WIDTH 14.3 % (11.5-14.5)
[2019-02-09] MEDS: IPRATROPIUM (NEB) 0.5 MG/2.5 ML AMP INH (22:56)
[2019-02-09] MEDS: ALBUTEROL 0.083% (NEB) 2.5 MG/3 ML AMP INH (22:56)
[2019-02-09 23:02] LABS: ANION GAP 8 (5-13); BLOOD UREA NITROGEN 23 mg/dl (7-20); CALCIUM 10.7 mg/dl (8.4-10.2); CARBON DIOXIDE 29 mmol/L (21-31); CHLORIDE 105 mmol/L (97-110); CREATININE 0.62 mg/dl (0.44-1.00); GLUCOSE 215 mg/dl (70-220); SODIUM 142 mmol/L (135-144)
[2019-02-09 23:11] LABS: MODE AEROSOL MASK; MetHgb Venous 0.1 %; Sample Type Blood venous; Site VENOUS LINE; Venous COHb 3.7 %; Venous Fraction OxyHgb 90.7 %; Venous Oxygen Sat 94.3 mmHG (55.0-75.0); Venous Total Hemglobin 15.1 g/dl
[2019-02-09 23:14] LABS: B-TYPE NATRIURETIC PEPTIDE 27 PG/ML (0-125); TROPONIN-I < 0.012 ng/ml (0.000-0.120)
[2019-02-10] MEDS: HYDROCODONE/APAP (10/325) TAB PO (00:33)
== END 2019-02-10 02:32 | disposition home or self-care (01) ==
LOC: E/R 02-10 02:32
DX: J44.1 Chronic obstructive pulmonary disease with (acute) exacerbation (principal); M79.661 Pain in right lower leg; I11.0 Hypertensive heart disease with heart failure; I50.9 Heart failure, unspecified; Z79.82 Long term (current) use of aspirin; Z87.891 Personal history of nicotine dependence
CPT/HCPCS: 36415; 71045; 80048; 82803; 83880; 84484; 85025; 93005; 93971; 94664; 96374; 99285-25